=== PATIENT | female | born 2000 | race African-American/Black ===

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

== ENCOUNTER 2018-05-12 16:07 | Emergency (ER) | payer OTHER ==
[2018-05-12 16:18] VITALS: BP 118/41; PULSE 67; TEMP 98.2; BMI 29.0
[2018-05-12] MEDS ORDERED: ACETAMINOPHEN 500 MG TABLET (FP) PO ONE (17:18)
--- NOTE | 2018-05-12 17:37 | PDOC ---
*Physical Exam - Vital Signs Last Vital Signs Temp Pulse Resp BP Pulse Ox 98.2 F 67 17 118/41 L 97 05/12/18 16:16 05/12/18 16:16 05/12/18 16:16 05/12/18 16:16 05/12/18 16:16 ED Treatment Course - LABORATORY CBC & Chemistry Diagram: 05/12/18 17:30 05/12/18 17:30 - ADDITIONAL ORDERS Additional order review: Laboratory Results 05/12/18 17:05 Urine HCG, Qual Positive - RADIOLOGY Radiology Studies Ordered: Category Date Time Status <14WKS US [US] Stat Ultrasound 05/12/18 17:18 Ordered Medical Decision Making - Medical Decision Making 05/12/18 17:35 Pt received in sign out from scott Haynes. Pt w/ initial complaint of menstrual cramps and left suprapubic pain. UA + for . Pt will have labs, u cx, t & s, along w/ u/s to r/o ectopic . 05/12/18 18:43 Selected Entries 05/12/18 16:16 Temperature 98.2 F Pulse Rate 67 Blood Pressure 118/41 L Laboratory Tests 05/12/18 05/12/18 05/12/18 17:05 17:30 17:30 WBC 6.2 Hgb 12.5 Hct 37.7 Absolute Neuts (auto) 3.9 Sodium 138 Potassium 4.2 Chloride 106 Carbon Dioxide 27 Anion Gap 5 L Creat Clearance w eGFR 106.68 Random Glucose 91 Calcium 9.4 AST 10 L ALT 19 Alkaline Phosphatase 63 Total Protein 7.8 Albumin 4.4 Beta HCG, Quant < 1.0 Urine HCG, Qual Positive U/s shows no IUP. Ovaries unremarkable. Pt states mod relief w/ Tylenol. Explained to mother the discrepancy with the urine and how the serum beta is highly accurate. I recommended the mother to return in 48 hrs for repeat beta hcg 05/12/18 18:44 *DC/Admit/Observation/Transfer Diagnosis at time of Disposition: Abdominal pain - Discharge Dispostion Disposition: HOME Condition at time of disposition: Improved - Referrals - Patient Instructions Printed Discharge Instructions: DI for Abdominal Pain-Adult Additional Instructions: Please return in 48 hrs for repeat BETA. Take tylenol or motrin for pain - Post Discharge Activity
[2018-05-12] MEDS ORDERED: ACETAMINOPHEN 325 MG TABLET (FP) ONE (17:41)
--- NOTE | 2018-05-12 17:44 | PDOC ---
History of Present Illness - General Chief Complaint: Pain Stated Complaint: MENTSRUAL CRAMPS Time Seen by Provider: 05/12/18 16:30 History Source: Patient Exam Limitations: No Limitations Past History - Past Medical History Allergies/Adverse Reactions: Allergies Allergy/AdvReac Type Severity Reaction Status Date / Time No Known Allergies Allergy Verified 05/12/18 16:28 Home Medications: Ambulatory Orders NK [No Known Home Medication] 05/12/18 Asthma: Yes COPD: No Thyroid Disease: No - Immunization History Immunization Up to Date: Yes - Suicide/Smoking/Psychosocial Hx Smoking Status: No Smoking History: Never smoked Have you smoked in the past 12 months: No Number of Cigarettes Smoked Daily: 0 Information on smoking cessation initiated: No Hx Alcohol Use: No Drug/Substance Use Hx: Yes Substance Use Type: None *Physical Exam - Vital Signs Last Vital Signs Temp Pulse Resp BP Pulse Ox 98.2 F 67 17 118/41 L 97 05/12/18 16:16 05/12/18 16:16 05/12/18 16:16 05/12/18 16:16 05/12/18 16:16 - Physical Exam General Appearance: No: Apparent Distress Respiratory/Chest: positive: Lungs Clear, Normal Breath Sounds. negative: Respiratory Distress Cardiovascular: positive: Regular Rhythm, Regular Rate, S1, S2. negative: Murmur Gastrointestinal/Abdominal: positive: Tender (mild TTP along lower abdomen (L>R) ), Soft. negative: Distended, Guarding, Rebound, Mass Musculoskeletal: negative: CVA Tenderness Integumentary: positive: Normal Color Neurologic: positive: Alert, Normal Mood/Affect ED Treatment Course - ADDITIONAL ORDERS Additional order review: Laboratory Results 05/12/18 17:05 Urine HCG, Qual Positive Medical Decision Making - Medical Decision Making 18 y/o F with hx of asthma presents with menstrual cramps, worse than usual. States her menstrual cycle started today, but it has never been this painful. Took 2 Advils this morning but they did not seem to help much. States her LNMP was sometime in March but unsure of exact date; has regular periods. Also mentions having 4 episodes of NBNB emesis this AM, but that has since resolved. Had ate something prior to coming and did not throw it up. Denies fever, sob, cp , urinary complaints UCG done and patient found to be Patient upgraded to main ED, under care of [facility] Audra Cheney, to r/o ectopic 05/12/18 17:40 *DC/Admit/Observation/Transfer Diagnosis at time of Disposition: Incidental - Referrals - Patient Instructions - Post Discharge Activity
[2018-05-12 17:46] LABS: BASO % 0.3 % (0-2.0); HEMATOCRIT 37.7 % (32.4-45.2); HEMOGLOBIN 12.5 GM/dL (10.7-15.3); LYMPH % 30.1 % (8-40); MCH 29.3 pg (25.7-33.7); MCHC 33.1 g/dl (32.0-36.0); MEAN CELL VOLUME 88.6 fl (80-96); NEUT % 62.6 % (42.8-82.8); PLATELET COUNT 254 K/MM3 (134-434); RBC 4.25 M/mm3 (3.60-5.2); RDW 13.6 % (11.6-15.6); WHITE BLOOD COUNT 6.2 K/mm3 (4.0-10.0)
[2018-05-12 18:15] LABS: ALBUMIN 4.4 g/dl (3.4-5.0); ALK PHOS 63 U/L (45-117); ANION GAP 5 MMOL/L (8-16); BILIRUBIN,TOTAL 0.6 mg/dL (0.2-1); BLOOD UREA NITROGEN 9 mg/dL (7-18); CALCIUM 9.4 mg/dL (8.5-10.1); CHLORIDE 106 mmol/L (98-107); CO2 27 mmol/L (21-32); CREATININE 0.7 mg/dL (0.55-1.3); GLUCOSE,RANDOM 91 mg/dL (74-106); POTASSIUM 4.2 mmol/L (3.5-5.1); SGOT/AST 10 U/L (15-37); SGPT/ALT 19 U/L (13-61); SODIUM 138 mmol/L (136-145); TOT PROT 7.8 g/dl (6.4-8.2)
== END 2018-05-12 19:52 | disposition home or self-care (01) ==
LOC: JERFT 16:07 → JER 16:07
DX: R10.30 Lower abdominal pain, unspecified (principal)
CPT/HCPCS: 36415; 76817-TC; 80053; 84702; 84703; 85025; 86850; 86900; 86901; 99282-25

== ENCOUNTER 2019-02-17 20:20 | Emergency (ER) | payer SELFPAY ==
[2019-02-17 20:55] VITALS: BMI 25.4
--- NOTE | 2019-02-17 22:47 | PDOC ---
History of Present Illness - General History Source: Patient Exam Limitations: No Limitations - History of Present Illness Initial Comments: 02/17/19 22:35 Patient is a 18-year-old female with history of possible gastritis, kidney infection complaining of lower abdominal pain x2 days associated with nausea and vomiting. She described the pain as a burning, pulling pain in the suprapubic area which is now 10/10. She has had some diarrhea episodes today. She has no associated dysuria. States she has been very fatigued and sleeping much today. Has eaten bread and audrey aaron today but vomited. Noted to have a fever at triage of 101.2. States she has been having a headache and a sore throat for the past 2 days as well. Headache is constant, throbbing, 9/10. States she went to [facility] yesterday for the same symptoms. States her throat was swabbed and she was sent home with no intervention. PMD: [facility] PMHX: As above PSOCHX: Occasional marijuana, neg etoh, neg cig ALL: NKDA GENERAL/CONSTITUTIONAL: [No fever or chills. No weakness. No weight change.] HEAD, EYES, EARS, NOSE AND THROAT: [No change in vision. No ear pain or discharge. No sore throat.] CARDIOVASCULAR: [No chest pain or shortness of breath.] RESPIRATORY: [No cough, wheezing, or hemoptysis.] GASTROINTESTINAL: [(+) nausea, vomiting, diarrhea (-) constipation. No rectal bleeding.] GENITOURINARY: [No dysuria, frequency, or change in urination.] MUSCULOSKELETAL: [No joint or muscle swelling or pain. No neck or back pain.] SKIN AND BREASTS: [No rash or easy bruising.] NEUROLOGIC: [(+) headache, (-) vertigo, loss of consciousness, or loss of sensation.] PSYCHIATRIC: [No depression or anxiety.] ENDOCRINE: [No increased thirst. No abnormal weight change.] HEMATOLOGIC/LYMPHATIC: [No anemia, easy bleeding, or history of blood clots.] ALLERGIC/IMMUNOLOGIC: [No hives or skin allergy. No latex allergy.] GENERAL: [The patient is awake, alert, and fully oriented, in mild acute distress.] HEAD: [Normal with no signs of trauma.] EYES: [Pupils equal, round and reactive to light, extraocular movements intact, sclera anicteric, conjunctiva clear.] ENT: [Ears normal, nares patent, oropharynx clear without exudates. Moist mucous membranes.] NECK: [Normal range of motion, supple without lymphadenopathy, JVD, or masses.] LUNGS: [Breath sounds equal, clear to auscultation bilaterally. No wheezes, and no crackles.] HEART: [Regular rate and rhythm, normal S1 and S2 without murmur, rub.] ABDOMEN: [Soft, (+) tenderness in the lower abd most on the RLQ, normoactive bowel sounds. No guarding, no rebound. No masses.] PELVIC: Normal external genitalia, normal physiological discharge in vault, bilateral adnexal tenderness, no CMT EXTREMITIES: [Normal range of motion, no edema. No clubbing or cyanosis. No cords, erythema, or tenderness.] NEUROLOGICAL: [Cranial nerves II through XII grossly intact. Normal speech, normal gait.] PSYCH: [Normal mood, normal affect.] SKIN: [Warm, Dry, normal turgor, no rashes or lesions noted.] <Shandra Broussard - Last Filed: 02/18/19 02:38> <Castro Overton - Last Filed: 02/18/19 22:08> - General Chief Complaint: Pain Stated Complaint: STOMACH PAIN Past History - Past Medical History Asthma: Yes COPD: No Thyroid Disease: No - Immunization History Immunization Up to Date: Yes - Psycho Social/Smoking Cessation Hx Smoking Status: No Smoking History: Never smoked Have you smoked in the past 12 months: No Number of Cigarettes Smoked Daily: 0 Information on smoking cessation initiated: No Hx Alcohol Use: No Drug/Substance Use Hx: No Substance Use Type: None <Shandra Broussard - Last Filed: 02/18/19 02:38> <Castro Overton - Last Filed: 02/18/19 22:08> - Past Medical History Allergies/Adverse Reactions: Allergies Allergy/AdvReac Type Severity Reaction Status Date / Time No Known Allergies Allergy Verified 02/17/19 20:51 Home Medications: Ambulatory Orders NK [No Known Home Medication] 05/12/18 *Physical Exam - Vital Signs Last Vital Signs Temp Pulse Resp BP Pulse Ox 101.5 F H 84 20 112/73 99 02/17/19 20:52 02/17/19 20:52 02/17/19 20:52 02/17/19 20:52 02/17/19 20:52 <Shandra Broussard - Last Filed: 02/18/19 02:38> - Vital Signs Last Vital Signs Temp Pulse Resp BP Pulse Ox 98.2 F 62 18 105/62 99 02/18/19 02:56 02/18/19 02:56 02/18/19 02:56 02/18/19 02:56 02/18/19 02:56 <Castro Overton - Last Filed: 02/18/19 22:08> ED Treatment Course - LABORATORY CBC & Chemistry Diagram: 02/17/19 23:10 02/17/19 23:10 <Shandra Broussard - Last Filed: 02/18/19 02:38> - LABORATORY CBC & Chemistry Diagram: 02/17/19 23:10 02/17/19 23:10 - ADDITIONAL ORDERS Additional order review: 02/17/19 23:10 RBC 4.01 MCV 88.4 MCHC 32.3 RDW 13.1 MPV 8.8 Neutrophils % 66.6 Lymphocytes % 23.9 D Monocytes % 8.7 Eosinophils % 0.4 Basophils % 0.4 - Medications Given in the ED: ED Medications Discontinued Medications Generic Name Dose Route Start Last Admin Trade Name Lamineq PRN Reason Stop Dose Admin Ketorolac Tromethamine 30 mg 02/17/19 22:56 02/17/19 23:20 Toradol Injection - IVPUSH 02/17/19 22:57 30 mg ONCE ONE Administration Ondansetron HCl 4 mg 02/17/19 22:57 02/17/19 23:21 Zofran Injection IVPUSH 02/17/19 22:58 4 mg ONCE ONE Administration Oxycodone/Acetaminophen 1 combo 02/18/19 02:02 02/18/19 02:24 Percocet 5/325 - PO 02/18/19 02:03 1 combo ONCE ONE Administration Sodium Chloride 1,000 ml 02/17/19 22:56 02/17/19 23:20 Normal Saline - IV 02/17/19 22:57 1,000 ml ONCE ONE Administration <Castro Overton - Last Filed: 02/18/19 22:08> Medical Decision Making - Medical Decision Making 02/17/19 22:35 Patient is a 18-year-old female with history of possible gastritis, kidney infection complaining of lower abdominal pain x2 days associated with nausea and vomiting. She described the pain as a burning, pulling pain in the suprapubic area which is now 10/10. She has had some diarrhea episodes today. She has no associated dysuria. States she has been very fatigued and sleeping much today. Has eaten bread and audrey aaron today but vomited. Noted to have a fever at triage of 101.2. States she has been having a headache and a sore throat for the past 2 days as well. Headache is constant, throbbing, 9/10. States she went to [facility] yesterday for the same symptoms. States her throat was swabbed and she was sent home with no intervention. DDx: Viral illness, appendicitis labs influenza swab, rapid strep consider CT scan Labs reviewed not acute findings except wbc of 2.7 patient distiller in the RLQ will ctap 02/18/19 02:29 Patient Full Name: PEDRO TAM Patient Accession No: [id number] Patient : 2000 Reason for Exam: rlq abd pain fever Referring Physician: Patient Name: YONATAN VASQUEZ THIS IS A PRELIMINARY REPORT FROM [facility] DATE OF SERVICE: 2019-02-18 00:52:30 IMAGES: [id number] EXAM: ABDOMEN \T\ PELVIS CT WITH CONTR HISTORY: Right lower quadrant pain and fever COMPARISON: None. FINDINGS: Lung bases are clear. The visualized cardiac chambers are normal size and configuration. Normal liver, gallbladder, pancreas, spleen, adrenal glands and kidneys. The stomach and abdominal small and large bowel are normal. There is no aortic aneurysm. There is no significant retroperitoneal lymphadenopathy. The pelvic small and large bowel are normal. There is no evidence of appendicitis, although the appendix is only questionably visualized. The uterus and adnexal structures are normal. Urinary bladder is unremarkable. There is a small amount of pelvic free fluid. No discrete pelvic lymphadenopathy is identified. IMPRESSION: Small amount of pelvic free fluid is questionably physiologic. A collapsed ovarian cyst is also considered although there are no adnexal masses. No other localizing findings for acute pathology. Only questionable visualization of the appendix without definite findings for appendicitis. One or more of the following dose reduction techniques were used: automated exposure control, adjustment of the mA and/or kV according to patient size, use of iterative reconstructive technique. THIS DOCUMENT HAS BEEN ELECTRONICALLY SIGNED Rad Cassidy MD 02/18/2019 02:00 PATRIZIA Boyer Please call Imaging Claims Correspondence Clerk [phone] ([phone]) with questions. INTERPRETING RADIOLOGIST: Ant Cassidy MD Electronically Signed: Feb 18, 2019 02:02AM EST Patient complains of pain after pelvic exam again given the Percocet. The report of the CAT scan was reviewed and is questionable visualization of the appendix without definite findings of acute appendicitis. This was discussed with the patient and her mother that if symptoms persist then it could still be appendicitis that is not captured by the CAT scan at this time because it may be too early. Mother and patient understands that if the pain persist in the right lower quadrant and is associated with fever nausea and vomiting they need to return to the emergency room immediately. I discussed the physical exam findings, ancillary test results and final diagnoses with the patient. I answered all of the patient's questions. The patient was satisfied with the care received and felt comfortable with the discharge plan and treatment plan. The Patient agrees to follow up with the primary care physician within 24-72 hours. <Shandra Broussard - Last Filed: 02/18/19 02:38> - Medical Decision Making 02/18/19 22:08 I reviewed the case of the mid-level practitioner and was available for consultation while in the emergency department <Castro Overton - Last Filed: 02/18/19 22:08> Discharge - Discharge Information Problems reviewed: Yes <Shandra Broussard - Last Filed: 02/18/19 02:38> <Castro Overton - Last Filed: 02/18/19 22:08> - Discharge Information Clinical Impression/Diagnosis: Abdominal pain Qualifiers: Abdominal location: unspecified location Qualified Code(s): R10.9 - Unspecified abdominal pain Condition: Stable Disposition: HOME - Patient Discharge Instructions Patient Printed Discharge Instructions: DI for Abdominal Pain-Adult Additional Instructions: Your Discharge Instructions: You must call primary care physician within 24 hours to arrange follow-up. Return to the Emergency Department with any new, persistent or worsening symptoms, for fever, chills, SOB, dizziness or any other concerning changes that may occur. The report of the CAT scan was is questionable visualization of the appendix without definite findings of acute appendicitis. YOU MUST RETURN IMMEDIATELY TO THE ED IF THE PAIN PERSIST IN THE RIGHT LOWER SIDE OF THE ABDODMEN and is associated with fever nausea and vomiting. Your flu test is also pending call tomorrow for report on your flu test.
[2019-02-17] MEDS ORDERED: SODIUM CHLORIDE 0.9% 500 ML INFUS.BAG IV ONE (22:56)
[2019-02-17] MEDS ORDERED: KETOROLAC TROMETHAMINE 30 MG/1 ML VIAL IVPUSH ONE (22:56)
[2019-02-17] MEDS ORDERED: ONDANSETRON 4 MG/2 ML VIAL IVPUSH ONE (22:57)
[2019-02-17] MEDS ORDERED: ONDANSETRON 4 MG/2 ML VIAL ONE (23:10)
[2019-02-17] MEDS ORDERED: KETOROLAC TROMETHAMINE 30 MG/1 ML VIAL ONE (23:10)
[2019-02-17 23:38] LABS: BASO % 0.4 % (0-2.0); EOS % 0.4 % (0-4.5); HEMATOCRIT 35.4 % (32.4-45.2); HEMOGLOBIN 11.5 GM/dL (10.7-15.3); LYMPH % 23.9 % (8-40); MCH 28.6 pg (25.7-33.7); MCHC 32.3 g/dl (32.0-36.0); MEAN CELL VOLUME 88.4 fl (80-96); MEAN PLT VOLUME 8.8 fl (7.5-11.1); MONO % 8.7 % (3.8-10.2); NEUT % 66.6 % (42.8-82.8); PLATELET COUNT 197 K/MM3 (134-434); RBC 4.01 M/mm3 (3.60-5.2); RDW 13.1 % (11.6-15.6); WHITE BLOOD COUNT 2.7 K/mm3 (4.0-10.0)
[2019-02-17 23:39] LABS: URINE APPEARANCE CLEAR; URINE BILIRUBIN NEGATIVE (NEGATIVE); URINE COLOR YELLOW; URINE GLUCOSE (UA) NEGATIVE (NEGATIVE); URINE KETONE 2+ (NEGATIVE); URINE LEUK ESTERASE NEGATIVE (NEGATIVE); URINE NITRITE NEGATIVE (NEGATIVE); URINE PROTEIN NEGATIVE (NEGATIVE)
[2019-02-18 00:04] LABS: ALBUMIN 3.9 g/dl (3.4-5.0); BILIRUBIN,TOTAL 0.7 mg/dL (0.2-1); BLOOD UREA NITROGEN 6.5 mg/dL (7-18); CALCIUM 8.8 mg/dL (8.5-10.1); CREATININE 0.8 mg/dL (0.55-1.3); TOT PROT 6.9 g/dl (6.4-8.2)
[2019-02-18 02:59] VITALS: BP 105/62; PULSE 62; TEMP 98.2
== END 2019-02-18 03:00 | disposition home or self-care (01) ==
LOC: JER 20:20
PROC: 3E033GC Introduction of Other Therapeutic Substance into Peripheral Vein, Percutaneous Approach (ICD-10-PCS; principal; 2019-02-17)
PROC: 3E0333Z Introduction of Anti-inflammatory into Peripheral Vein, Percutaneous Approach (ICD-10-PCS; 2019-02-17)
DX: R10.9 Unspecified abdominal pain (principal)
CPT/HCPCS: 36415; 74177-TC; 80053; 81003; 83690; 84703; 85025; 87070; 87491; 87591; 87804; 87880; 99284-25; Q9967

== ENCOUNTER 2019-02-18 22:50 | Emergency (ER) | payer SELFPAY ==
[2019-02-18 23:01] VITALS: BP 119/70; PULSE 61; TEMP 98.6; BMI 25.2
[2019-02-19] MEDS ORDERED: ONDANSETRON 4 MG TABLET PO ONE (01:12)
--- NOTE | 2019-02-19 01:14 | PDOC ---
History of Present Illness - General Chief Complaint: Pain Stated Complaint: SENT BY DOC Time Seen by Provider: 02/18/19 23:13 History Source: Patient Exam Limitations: No Limitations - History of Present Illness Initial Comments: 02/19/19 01:05 Patient is a 18-year-old female with no past medical history here with complaints of continued abdominal pain patient now points to the suprapubic area. Patient called this evening to report that she was still vomiting and still had abdominal pain 09/23. States she ate this morning and vomited, since then has not been able to eat anything the rest of the day. CT scan reviewed from yesterday official read by radiologist showed no appendicitis. However, had tenderness on her vaginal exam yesterday. PMD: [facility] PMHX: As above PSOCHX: ALL: NKDA Review of Systems: GENERAL/CONSTITUTIONAL: No fever or chills. No weakness. No weight change. HEAD, EYES, EARS, NOSE AND THROAT: No change in vision. No ear pain or discharge. No sore throat. CARDIOVASCULAR: No chest pain or shortness of breath. RESPIRATORY: No cough, wheezing, or hemoptysis. GASTROINTESTINAL: (+) nausea, vomiting, (-) diarrhea or constipation. No rectal bleeding. GENITOURINARY: No dysuria, frequency, or change in urination. MUSCULOSKELETAL: No joint or muscle swelling or pain. No neck or back pain. SKIN AND BREASTS: No rash or easy bruising. NEUROLOGIC: No headache, vertigo, loss of consciousness, or loss of sensation. PSYCHIATRIC: No depression or anxiety. ENDOCRINE: No increased thirst. No abnormal weight change. HEMATOLOGIC/LYMPHATIC: No anemia, easy bleeding, or history of blood clots. ALLERGIC/IMMUNOLOGIC: No hives or skin allergy. No latex allergy. GENERAL: [The patient is awake, alert, and fully oriented, in no acute distress. ] HEAD: [Normal with no signs of trauma.] EYES: [Pupils equal, round and reactive to light, extraocular movements intact, sclera anicteric, conjunctiva clear.] ENT: [Ears normal, nares patent, oropharynx clear without exudates. Moist mucous membranes.] NECK: [Normal range of motion, supple without lymphadenopathy, JVD, or masses.] LUNGS: [Breath sounds equal, clear to auscultation bilaterally. No wheezes, and no crackles.] HEART: [Regular rate and rhythm, normal S1 and S2 without murmur, rub.] ABDOMEN: [Soft, (+) tenderness suprapubic, nontender at McBurney's point, normoactive bowel sounds. No guarding, no rebound. No masses.] EXTREMITIES: [Normal range of motion, no edema. No clubbing or cyanosis. No cords, erythema, or tenderness.] NEUROLOGICAL: [Cranial nerves II through XII grossly intact. Normal speech, normal gait.] PSYCH: [Normal mood, normal affect.] SKIN: [Warm, Dry, normal turgor, no rashes or lesions noted.] 02/19/19 01:48 Past History - Past Medical History Allergies/Adverse Reactions: Allergies Allergy/AdvReac Type Severity Reaction Status Date / Time No Known Allergies Allergy Verified 02/17/19 20:51 Home Medications: Ambulatory Orders Ondansetron HCl [Zofran] 4 mg PO QID #14 tablet 02/19/19 Oxycodone HCl/Acetaminophen [Percocet 5/325 -] 1 tab PO Q4H #8 tablet MDD 6 08/03 Asthma: Yes COPD: No Thyroid Disease: No - Immunization History Immunization Up to Date: Yes - Psycho Social/Smoking Cessation Hx Smoking Status: No Smoking History: Never smoked Have you smoked in the past 12 months: No Number of Cigarettes Smoked Daily: 0 Hx Alcohol Use: No Drug/Substance Use Hx: No Substance Use Type: None *Physical Exam - Vital Signs Last Vital Signs Temp Pulse Resp BP Pulse Ox 98.6 F 61 20 119/70 100 02/18/19 22:58 02/18/19 22:58 02/18/19 22:58 02/18/19 22:58 02/18/19 22:58 ED Treatment Course - RADIOLOGY Radiology Studies Ordered: Category Date Time Status TRANSVAGINAL ULTRASOUND US [US] Stat Ultrasound 02/18/19 23:10 Taken Medical Decision Making - Medical Decision Making 02/19/19 01:05 Patient is a 18-year-old female with no past medical history here with complaints of continued abdominal pain patient now points to the suprapubic area. Patient called this evening to report that she was still vomiting and still had abdominal pain 810. States she ate this morning and vomited, since then has not been able to eat anything the rest of the day. CT scan reviewed from yesterday official read by radiologist showed no appendicitis. However, had tenderness on her vaginal exam yesterday. We will send patient for ultrasound rule out torsion Patient Full Name: PEDRO TAM Patient Accession No: [id number] Patient : 2000 Reason for Exam: pelvis pain and fever Referring Physician: Patient Name: YONATAN VASQUEZ THIS IS A PRELIMINARY REPORT FROM [facility] DATE OF SERVICE: 2019-02-18 23:12:58 IMAGES: [id number] EXAM: TRANSVAGINAL ULTRASOUND US HISTORY: Pelvic pain and fever COMPARISON: Abdomen and pelvis CT from earlier on the same date FINDINGS: The uterus is normal in size and echogenicity The endometrium is normal in thickness measuring 7.8 mm Incidental nabothian cysts The right ovary is normal in size and contains multiple small follicles There is a cyst in the left ovary measuring 1.8 x 1.5 x 1.9 cm containing low level internal echoes, possibly hemorrhagic. There are a few small follicles as well Arterial flow is demonstrated to both ovaries on Doppler evaluation No adnexal masses visualized Small amount of free fluid in the posterior cul-de-sac may be incidental physiologic fluid THIS DOCUMENT HAS BEEN ELECTRONICALLY SIGNED Jarek Castillo MD 02/19/2019 00:26 EST M.D. Please call Imaging Doctor Podiatric Medicine [phone] ([phone]) with questions. I discussed the physical exam findings, ancillary test results and final diagnoses with the patient. I answered all of the patient's questions. The patient was satisfied with the care received and felt comfortable with the discharge plan and treatment plan. The Patient agrees to follow up with the primary care physician within 24-72 hours. Discharge - Discharge Information Problems reviewed: Yes Clinical Impression/Diagnosis: Ruptured ovarian cyst Abdominal pain Qualifiers: Abdominal location: unspecified location Qualified Code(s): R10.9 - Unspecified abdominal pain Condition: Stable Disposition: HOME - Additional Discharge Information Prescriptions: Ondansetron HCl [Zofran] 4 mg PO QID #14 tablet Oxycodone HCl/Acetaminophen [Percocet 5/325 -] 1 tab PO Q4H #8 tablet MDD 6 - Follow up/Referral - Patient Discharge Instructions Patient Printed Discharge Instructions: DI for Ovarian Cyst, DI for Abdominal Pain-Adult Additional Instructions: Your Discharge Instructions: You must call primary care physician within 24 hours to arrange follow-up. Return to the Emergency Department with any new, persistent or worsening symptoms, for fever, chills, SOB, dizziness or any other concerning changes that may occur. Follow-up with your FORMS EXAMINER - Post Discharge Activity
[2019-02-19] MEDS ORDERED: ONDANSETRON *ODT* 4 MG TABLET ONE (01:17)
== END 2019-02-19 01:50 | disposition home or self-care (01) ==
LOC: JER 22:50
DX: N83.202 Unspecified ovarian cyst, left side (principal); N83.201 Unspecified ovarian cyst, right side
CPT/HCPCS: 76830-TC; 99281-25

== ENCOUNTER 2019-11-22 16:33 | Emergency (ER) | payer OTHER ==
[2019-11-22 16:45] VITALS: BP 108/58; PULSE 79; TEMP 98.3; BMI 26.1
--- OUTSIDE RECORDS SUMMARY | 2019-11-22 16:59 | XMS ---
:2000 Author Organization [facility] Care Team Providers Name Role Phone Ringstad, Sakshi Unavailable Unavailable Ringstad, Sakshi Unavailable Unavailable Ringstad, Sakshi Unavailable Unavailable Ringstad, Sakshi Unavailable Unavailable Ringstad, Sakshi Unavailable Unavailable Ringstad, Sakshi Unavailable Unavailable Ringstad, Sakshi Unavailable Unavailable Ringstad, Sakshi Unavailable Unavailable Ringstad, Sakshi Unavailable Unavailable Ringstad, Sakshi Unavailable Unavailable Ringstad, Sakshi Unavailable Unavailable Ekechukwu, Eberechi Unavailable [phone] Ekechukwu, Eberechi Unavailable [phone] ED STAFF PHYSICIAN, STAFF Unavailable Unavailable Routen, Misha Unavailable Unavailable Routen, Misha Unavailable Unavailable Aszalos, Zina Ludy Unavailable Unavailable Aszalos, Ludy Unavailable Unavailable Aszalos, Ludy Unavailable Unavailable Aszalos, Ludy Unavailable Unavailable Aszalos, Ludy Unavailable Unavailable Aszalos, Ludy Unavailable Unavailable Aszalos, Ludy Unavailable Unavailable Aszalos, Ludy Unavailable Unavailable Aszalos, Ludy Unavailable Unavailable Nakia Funes MD Unavailable Unavailable Nakia Funes MD Unavailable Unavailable Nakia Funes MD Unavailable Unavailable Nakia Funes MD Unavailable Unavailable Nakia Funes MD Unavailable Unavailable Nakia Funes MD Unavailable Unavailable Nakia Funes MD Unavailable Unavailable Nakia Funes MD Unavailable Unavailable Nakia Funes MD Unavailable Unavailable Nakia Funes MD Unavailable Unavailable Nakia Funes MD Unavailable Unavailable Nakia Funes MD Unavailable Unavailable Nakia Funes MD Unavailable Unavailable Nakia Funes MD Unavailable Unavailable Nakia Funes MD Unavailable Unavailable Adair Unavailable Unavailable Adair Unavailable Unavailable Adair Unavailable Unavailable Adair Unavailable Unavailable Adair Unavailable Unavailable Adair Unavailable Unavailable Adair Unavailable Unavailable Adair Unavailable Unavailable Adair Unavailable Unavailable Adair Unavailable Unavailable Yessenia FELIPE MD Unavailable [phone] Yessenia FELIPE MD Unavailable [phone] ED STAFF PHYSICIAN Unavailable Unavailable ED STAFF PHYSICIAN Unavailable Unavailable Re-disclosure Warning The records that you are about to access may contain information from federally- assisted alcohol or drug abuse programs. If such information is present, then the following federally mandated warning applies: This information has been disclosed to you from records protected by federal confidentiality rules (42 CFR part 2). The federal rules prohibit you from making any further disclosure of this information unless further disclosure is expressly permitted by the written consent of the person to whom it pertains or as otherwise permitted by 42 CFR part 2. A general authorization for the release of medical or other information is NOT sufficient for this purpose. The Federal rules restrict any use of the information to criminally investigate or prosecute any alcohol or drug abuse patient.The records that you are about to access may contain highly sensitive health information, the redisclosure of which is protected by Article 27-F of the [facility] Public Health law. If you continue you may haveaccess to information: Regarding HIV / AIDS; Provided by facilities licensed or operated by the [facility] Office of Mental Health; or Provided by the [facility] Office for People With Developmental Disabilities. If such information is present, then the following [facility] mandated warning applies: This information has been disclosed to you from confidential records which are protected by state law. State law prohibits you from making any further disclosure of this information without the specific written consent of the person to whom it pertains, or as otherwise permitted by law. Any unauthorized further disclosure in violation of state law may result in a fine or detention sentence or both. A general authorization for the release of medical or other information is NOT sufficient authorization for further disclosure. Family History Family Member Family Member Family Member Date of Description Data Source(s) Name Gender Status Status Unknown Female Diagnosis 03/19/2018 NEXTGEN ([facility] 12:00:00 [facility]) Unknown Female Diagnosis 03/19/2018 NEXTGEN ([facility] 12:[facility]:00 AM [facility]) Unknown Female Diagnosis 03/19/2018 NEXTGEN ([facility] 12:00:00 AM [facility]) Unknown Female Diagnosis 03/19/2018 NEXTGEN ([facility] 12:00:00 AM [facility]) Unknown Female Diagnosis 03/19/2018 NEXTGEN ([facility] 12:00:00 AM [facility]) Encounters Encounter Providers Location Date Indications Data Source(s ) Outpatient Attender: H 09/04/2019 [facility] Sakshi 03:44:00 Medical [place] Dodie PM EDT : Sakshi Woodarder : Sakshi Alexander OutpatientOFFICE/ Attender: [facility] 09/04/2019 NE XTGEN ([facility] OUTPATIENT VISIT, Faizan Casas MD [place] 03:44:00 [facility] [place] PM EDT - Center) 09/04/2019 03:44:00 PM EDT Outpatient 09/04/2019 [facility] 02:30:00 Medical [place] PM EDT Outpatient 09/04/2019 [facility] 12:00:00 Medical [place] AM EDT Attender: Layla [facility] 08/23/2019 NEXTGE N ([facility] 04:14:00 [facility] - Center) 08/23/2019 04:14:00 PM EDT Outpatient 08/22/2019 [facility] 10:47:00 Medical [place] AM EDT Outpatient 08/22/2019 [facility] 12:00:00 Medical [place] AM EDT Attender: Misha [facility] 08/21/2019 NEXTGEN ([facility] 11:28:00 [facility] AM [facility]T - Center) 08/21/2019 11:28:00 AM EDT Attender: Susan [facility] 05/08/2019 NEXTGE N ([facility] 11:50:00 [facility] AM EDT - Center) 05/08/2019 11:50:00 AM EDT Outpatient 05/07/2019 [facility] 11:21:00 Medical [place] AM EDT Outpatient 05/07/2019 [facility] 12:00:00 Medical [place] AM EDT Attender: [facility] 04/11/2019 NEXTGEN ([facility] 10:17:00 [facility] Eke[place]uk[place] AM EST - Center) 04/11/2019 10:17:00 AM EST Outpatient 04/10/2019 [facility] 02:57:00 Medical Center PM EST Outpatient 04/10/2019 [facility] 12:00:00 Medical Center AM EST Attender: [facility] 03/17/2019 NEXTGE N ([facility] 09:23:00 [facility] Medic l EST - Center) 03/17/2019 09:23:00 AM EST Outpatient 03/16/2019 [facility] 03:15:00 Medical Center PM EST Outpatient 03/16/2019 [facility] 12:00:00 Medical Center AM EST Emergency Attender: ED H 02/16/2019 [facility] STAFF 10:26:00 Medical Center PHYSICIANAttende PM EST - r: STAFF ED 02/17/2019 STAFF 01:10:00 PHYSICIANAdmitte AM EST r: ED STAFF PHYSICIAN Patient discharged. 02/16/2019 12:00:00 [facility] EST - 11/07/2002 [facility] al Center 12:00:00 AM EDT Attender: [facility] 11/15/2018 02:44:00 NEXTGEN ([facility] PM EDT - 11/15/2018 [facility] 02:44:00 PM EDT Center) Outpatient 11/14/2018 10:50:00 [facility] Center Outpatient 11/14/2018 12:00:00 [facility] Center Emergency H 11/12/2018 11:23:00 [facility] EDT - 11/12/2018 [facility] Center 03:44:00 PM EDT Patient discharged. Emergency Attender: [facility] ED STAFF H 10/25/2018 07:26:00 PM [facility] PHYSICIANAdmitter: [facility] ED EDT - 10/25/2018 Medical Center STAFF PHYSICIAN 10:19:00 PM EDT Patient discharged. Medications Medication Brand Start Product Dose Route Administrative Pharmacy St at Indications Reaction Description Data Name Date Form Instructions Instructions Source(s) Sulfamethox Bactri 09/03/ active Sulfame thoxa NEXTGEN azole 800 m DS 2019 zole 800 MG (Sa int MG / 800 12:00: [facility] Trimethopri mg-160 00 AM Trimethopr im Medical m 160 MG mg EDT 160 MG Oral Cent er) Oral Tablet tablet Tablet [Bactrim] [Bactrim] Bactrim DS 800 mg-160 mg tablet Insurance Providers Payer name Policy type Policy ID Covered Covered libertarian's Policy P bronson / Coverage libertarian ID relationship to Cain Inf ormation type cian [employer] [id number] SP [id number] C HMO [place] O [id number] 01 [id number] [employer] SELF PAY SP INSURANCE MICHELLE [id number] SP [id number] EXCHANGE MICHELLE O [id number] ESSENTIALS-COM MERCIAL O Problems, Conditions, and Diagnoses Code Display Name Description Problem Type Effective Data Sour ce(s) Dates R10.2 Pelvic and PELVIC AND Diagnosis 09/04/2019 [facility] perineal pain PERINEAL PAIN 03:44:00 PM Medical Center EDT Z72.0 Tobacco use TOBACCO USE Diagnosis 02/16/2019 [facility] 10:26:00 PM Medical Cente r EST J45.909 Unspecified UNSPECIFIED Diagnosis 02/16/2019 [facility] asthma, ASTHMA, 10:26:00 PM Medical Cente r uncomplicated UNCOMPLICATED EST R10.9 Unspecified UNSPECIFIED Diagnosis 02/16/2019 [facility] abdominal pain ABDOMINAL PAIN 10:26:00 PM Medic al Center EST R11.0 Nausea NAUSEA Diagnosis 11/12/2018 [facility] 11:23:00 AM Medical [place] r EDT K08.109 Complete loss of COMPLETE LOSS OF Diagnosis 11/12/2018 [facility] teeth, unspecified TEETH, UNSPECIFIED 11:23:00 AM Medical Center cause, unspecified CAUSE, UNSPECIFIED EDT class CLASS K08.89 Other specified OTHER SPECIFIED Diagnosis 11/12/2018 [facility] disorders of teeth DISORDERS OF TEETH 11:23:00 AM Medical Center and supporting AND SUPPORTING EDT structures STRUCTURES Z32.02 Encounter for ENCOUNTER FOR Diagnosis 10/25/2018 [facility] test, TEST, 07:26:00 PM Med ical Center result negative RESULT NEGATIVE EDT Z32.00 Encounter for ENCOUNTER FOR Diagnosis 10/25/2018 [facility] juarez test, TEST, 07:26:00 PM Med ical Center result unknown RESULT UNKNOWN EDT Z00.00 Encounter for ENCNTR FOR GENERAL Diagnosis 10/25/2018 [facility] general adult ADULT MEDICAL EXAM 07:26:00 PM [facility] medical W/O ABNORMAL EDT examination FINDINGS without abnormal findings Surgeries/Procedures Procedure Description Date Indications Data Source(s) OFFICE/OUTPATIENT 09/04/2019 NEXTGEN ([facility] VISIT, EST 12:00:00 AM EDT - Medical Ce nter) 09/04/2019 12:00:00 AM EDT URINE TEST 09/04/2019 NEXTGEN ([facility] 12:00:00 AM EDT - Medical Ce nter) 09/04/2019 12:00:00 AM EDT Results ID Date Data Source [id number] 09/04/2019 04:39:00 PM EDT NEXTG EN ([facility] [id number] [place]) Name Value Range Interpretation Code Description Data Supporting Source(s) Document(s ) <=8 Susceptible. AMPICILLIN NEXTGEN Indicates for ([facility] susceptibilities Medical only. [place]) <=4/2 Susceptible. AMPICILLIN NEXTGEN Indicates for SULBACTAM ([facility] [place] Medical only. [place]) <=2 Susceptible. CEFAZOLIN NEXTGEN Indicates for ([facility] susceptibilities Medical only. [place]) <=4 Susceptible. AZTREONAM NEXTGEN Indicates for ([facility] susceptibilities Medical only. [place]) <=1 Susceptible. CEFTRIAXONE NEXTGEN Indicates for ([facility] [place] Medical only. [place]) <=1 Susceptible. CEFTAZIDIME NEXTGEN Indicates for ([facility] susceptibilities Medical only. [place]) <= 4 Susceptible. GENTAMICIN NEXTGEN Indicates for ([facility] [place] Medical only. [place]) <=4 Susceptible. CEFUROXIME NEXTGEN Indicates for ([facility] susceptibilities Medical only. [place]) <= 1 Susceptible. CIPROFLOXACIN NEXTGEN Indicates for ([facility] susceptibilities Medical only. [place]) <= 1 Susceptible. MEROPENEM NEXTGEN Indicates for ([facility] [place] Medical only. [place]) <= 2 Susceptible. LEVOFLOXACIN NEXTGEN Indicates for ([facility] Medical only. [place]) 64 Specimen in lab; NITROFURANTOIN NEXTGEN results pending ([facility]) <= 16 Susceptible. PIPERACILLIN/TAZOB NEXTGEN Indicates for ACTAM ([facility] susceptibilities Medical only. [place]) <=2/38 Susceptible. TRIMETHOPRIM/SULFA NEXTGEN Indicates for METHOXAZOLE ([facility] susceptibilities Medical only. [place]) > 8 Results entered -- TETRACYCLINE NEXTGEN not verified ([facility]) <=0.5 Susceptible. ERTAPENEM NEXTGEN Indicates for ([facility] Medical [facility]. [place]) <= 1 CEFOTAXIME-ESBL NEXTGEN ([facility]) <= 8 Susceptible. CEFOXITIN NEXTGEN Indicates for ([facility] [place] Medical only. [place]) ID Date Data Source [id number] 09/04/2019 04:39:00 PM EDT NEXTG EN ([facility] [id number] [place]) Name Value Range Interpretation Code Description Data Lenka rce(s) Supporting Document(s ) PROTEUS ORGANISM ID NEXTGEN ([facility]) ID Date Data Source [id number] 09/04/2019 04:39:00 PM EDT NEXTG EN ([facility] [id number] [place]) Name Value Range Interpretation Description Data Sup porting Code Source(s) Document(s ) [id number] SPECIMEN NO NEXTGEN ([facility]) URINE BLADDER [facility]) Final CULTURE STATUS NEXTGEN ([facility]) 09/04/2019 COLLECTION DT NEXTGEN 16:39 ([facility]) 09/04/2019 PLATE DT [facility] 17:48 ([facility]) >100,000 COLONY COUNT [facility] CFU/ML ([facility]) Culture in CULTURE REPORT CRITICAL ACCESS HOSPITALGEN progress ([facility]) LACTOSE PRELIMINARY 1 NEXTGEN NON-COTTON BALL MACHINE TENDER ([facility]) ID Date Data Source [id number] 09/04/2019 04:39:00 PM EDT NEXTG EN ([facility] [id number] [place]) Name Value Range Interpretation Description Data Sup porting Code Source(s) Document(s ) Not Detected Not N.GONORRHOEAE NEXTGEN Detected RNA, TMA ([facility]) This test was performed using the APTIMA COMBO2(R) Assay(GENCardpoolPROBE(R)).For additional information, please refer [email or web address]/[email or web address](This link is being provided for informational /educationalpurposes only)

ID Date Data Source [id number] 09/04/2019 04:39:00 PM EDT NEXTG EN ([facility] [id number] [place]) Name Value Range Interpretation Description Data Sup porting Code Source(s) Document(s ) Not Detected Not CHLAMYDIA NEXTGEN Detected URINE ([facility]) This test was performed using the APTIMA COMBO2(R) Assay(EverTrue(R)).For additional information, please refer [email or web address]/[email or web address](This link is being provided for informational /educationalpurposes only)

ID Date Data Source [id number] 09/04/2019 04:39:00 PM EDT NEXTG EN ([facility] [id number] [place]) Name Value Range Interpretation Description Data Sup porting Code Source(s) Document(s ) Preliminary CULTURE STATUS [facility] ([facility]) 204.07682 SPECIMEN NO [facility] ([facility]) 09/04/2019 COLLECTION DT NEXTGEN 16:39 ([facility]) URINE BLADDER CULTURE SOURCE [facility]) Culture in CULTURE REPORT NEXTGEN progress ([facility]) 09/04/2019 PLATE DT [facility] 17:48 ([facility]) LACTOSE PRELIMINARY 1 NEXTGEN NON-COTTON BALL MACHINE TENDER ([facility]) >100,000 CFU/ML COLONY COUNT [facility] ([facility]) ID Date Data Source [id number] 09/04/2019 04:39:00 PM EDT NEXTG EN ([facility] [id number] [place]) Name Value Range Interpretation Description Data Sup porting Code Source(s) Document(s ) Preliminary CULTURE STATUS [facility] ([facility]) 204.47933 SPECIMEN NO CRITICAL ACCESS HOSPITALGEN ([facility]) URINE BLADDER CULTURE SOURCE [facility] ([facility]) 09/04/2019 COLLECTION DT NEXTGEN 16:39 ([facility]) Culture in CULTURE REPORT NEXTGEN progress ([facility]) 09/04/2019 PLATE DT NEXTGEN 17:48 ([facility]) ID Date Data Source [id number] 09/04/2019 04:39:00 PM EDT NEXTG EN ([facility] [id number] Center) Name Value Range Interpretation Description Data Sup porting Code Source(s) Document(s ) YELLOW YELLOW U COLOR NEXTGEN ([facility]) CLOUDY CLEAR U CLARITY NEXTGEN ([facility]) NEGATIVE NEGATIVE U GLUCOSE NEXTGEN ([facility]) NEGATIVE NEGATIVE U BILIRUBIN NEXTGEN ([facility]) NEGATIVE NEGATIVE U KETONE CRITICAL ACCESS HOSPITALGEN ([facility]) 1.025 1.015-1.025 U SP.GRAVITY NEXTGEN ([facility]) LARGE NEGATIVE U BLOOD NEXTGEN ([facility]) 6.0 4.5-8.0 U PH NEXTGEN ([facility]) 100 MG/DL NEGATIVE U PROTEIN NEXTGEN ([facility]) 1.0 MG/DL 0.2-1.0 U UROBILINOGEN CRITICAL ACCESS HOSPITALGEN ([facility]) NEGATIVE NEGATIVE U NITRITE NEXTGEN ([facility]) LARGE NEGATIVE U. LEUKOCYTE [facility] ([facility]) 20 - 50 0-3 U RBC NEXTGEN ([facility]) >200 0-3 U WBC NEXTGEN ([facility]) MODERATE NEGATIVE U BACTERIA [facility] ([facility]) ID Date Data Source [id number] 09/04/2019 04:39:00 PM EDT [facility] 0 Name Value Range Interpretation Description Data Sup porting Code Source(s) Document(s ) Color of Urine YELLOW <content [facility] styleCode="[facility] d">Color, Medical Urine Center </content>YELL OW <content styleCode="Enedina lics"> (YELLOW )</content> Glucose NEGATIVE <content [facility] [Mass/volume] styleCode="[facility] in Urine by d">Urine Medical Test strip Glucose Center </content>NEGA TIVE MG/DL<content styleCode="Enedina lics"> (NEGATIVE MG/DL)</conten t> UNK CLEAR <content [facility] styleCode="[facility] d">Urine Medical Clarity Center </content>CLOU DY <content styleCode="Enedina lics"> (CLEAR )</content> UNK NEGATIVE <content [facility] styleCode="[facility] d">Urine Medical Bilirubin Center </content>NEGA TIVE <content styleCode="Enedina lics"> (NEGATIVE )</content> Ketones NEGATIVE <content [facility] [Mass/volume] styleCode="[facility] in Urine by d">Urine Medical Test strip Ketone Center </content>NEGA TIVE MG/DL<content styleCode="Enedina lics"> (NEGATIVE MG/DL)</conten t> Specific 1.015-1.02 <content [facility] gravity of 5 styleCode="[facility] Urine by Test d">Urine Medical strip Specific Center [place] </content>1.02 5 <content styleCode="Enedina lics"> (1.015-1.025 )</content> Hemoglobin NEGATIVE <content [facility] [Presence] in styleCode="[facility] Urine by Test d">Urine Blood Medical strip </content>LARG Center E <content styleCode="Enedina lics"> (NEGATIVE )</content> Protein NEGATIVE <content [facility] [Mass/volume] styleCode="[facility] in Urine by d">Urine Medical Test strip Protein Center </content>100 MG/DL<content styleCode="Enedina lics"> (NEGATIVE MG/DL)</conten t> pH of Urine by 4.5-8.0 <content [facility] Test strip styleCode="Sandy Nehemiah d">Urine pH Medical </content>6.0 Center <content styleCode="Enedina lics"> (4.5-8.0 )</content> Urobilinogen 0.2-1.0 <content [facility] [Units/volume] styleCode="[facility] in Urine by d">Urine Medical Test strip Urobilinogen Center </content>1.0 MG/DL<content styleCode="Enedina lics"> (0.2-1.0 MG/DL)</conten t> Leukocyte NEGATIVE <content [facility] esterase styleCode="[facility] [Presence] in d">Urine Medical Urine by Test Leukocyte Center strip </content>LARG E <content styleCode="Enedina lics"> (NEGATIVE )</content> UNK 0-3 <content [facility] styleCode="[facility]iah d">Urine White Medical Blood Cell Center </content>>200 HPF<content styleCode="Enedina lics"> (0-3 HPF)</content> Nitrite NEGATIVE <content [Presence] in styleCode="[facility] Urine by Test d">Urine Medical strip Nitrite Center </content>NEGA TIVE <content styleCode="Enedina lics"> (NEGATIVE )</content> UNK 0-3 <content [facility] styleCode="[facility] d">Urine Red Medical Blood Cell Center </content>20 - 50 HPF<content styleCode="Enedina lics"> (0-3 HPF)</content> UNK NEGATIVE <content [facility] styleCode="[facility] d">Urine Medical Bacteria Center </content>MODE RATE HPF<content styleCode="Enedina lics"> (NEGATIVE HPF)</content> ID Date Data Source [id number] 09/04/2019 04:39:00 PM EDT [facility] 400 Name Value Range Interpretation Code Description Data Lenka rce(s) Supporting Document(s ) UNK <item><content [facility] styleCode="Bold"> Medical Cent er Culture Report </content>
<t able><tbody><tr>< td>Specimen Number:</td><td>[id number]</td></tr ><tr><td>Sample Collection Date/Time: </td><td> 0 4:39 PM</td></tr><tr>< td>Specimen Source:</td><td>U RINE BLADDER</td></tr> <tr><td>Urine Culture:</td><td> Collection Plate Date: 09/04/2019 17:48 </td></tr><tr><td >Culture Status:</td><td>P reliminary </td></tr><tr><td >Culture Report:</td><td>C ulture in progress </td></tr></tbody ></table></item> UNK <item><content [facility] styleCode="Bold"> Medical Cent er Culture Status </content>
<t able><tbody><tr>< td>Specimen Number:</td><td>[id number]</td></tr ><tr><td>Sample Collection Date/Time: </td><td> 0 4:39 PM</td></tr><tr>< td>Specimen Source:</td><td>U RINE BLADDER</td></tr> <tr><td>Culture Status:</td><td>P reliminary </td></tr><tr><td >Culture Report:</td><td>C ulture in progress </td></tr><tr><td >Urine Culture:</td><td> Collection Plate Date: 09/04/2019 17:48 </td></tr></tbody ></table></item> ID Date Data Source [id number] 09/04/2019 04:23:25 PM EDT NEXTG EN ([facility] [id number] [place]) Name Value Range Interpretation Description Data Sup porting Code Source(s) Document(s ) large Blood NEXTGEN ([facility]) neg Bilirubin [facility]) 1.025 [place] [facility] ([facility]) Urinalysis Color NEXTGEN dipstick panel ([facility] Automated test Medical strip [place]) Clarity [facility] ([facility]) neg Ketones [facility] ([facility]) mod Leukocytes [facility] ([facility]) Protein [facility] ([facility]) 6.0 pH NEXTGEN ([facility]) neg Nitrite NEXTGEN ([facility]) neg Glucose NEXTGEN ([facility]) neg Urobilinogen CRITICAL ACCESS HOSPITALGEN ([facility]) ID Date Data Source [id number] 09/04/2019 04:23:25 PM EDT NEXTG EN ([facility] [id number] [place]) Name Value Range Interpretation Description Data Sup porting Code Source(s) Document(s ) Choriogonadotropin neg Urine NEXTGEN ( test) ([facility] [Presence] in Urine Test [facility]) ID Date Data Source [id number] 02/16/2019 11:12:00 PM EST Mario nt [facility] 500 Name Value Range Interpretation Description Data Sup porting Code Source(s) Document(s ) UNK <item><content [facility] styleCode="[employer] d">Culture Medical Status Center </content><br/ ><table><tbody ><tr><td>Speci men Number:</td><t d>[id number]</t d></tr><tr><td >Sample Collection Date/Time: </td><td> 020 11:12 PM</td></tr><t r><td>Specimen Source:</td><t d>THROAT</td>< /tr><tr><td>Cu lture Status:</td><t d>Final </td></tr><tr> <td>Culture Report:</td><t d>NEGATIVE FOR BETA HEMOLYTIC STREPTOCOCCI </td></tr><tr> <td>Throat-Nos e Culture:</td>< td>Collection Plate Date: 02/16/2019 23:14 </td></tr></tb denton></table></ item> UNK <item><content Saygus styleCode="Sandy Nehemiah d">Culture Medical Report Center </content><br/ ><table><tbody ><tr><td>Speci men Number:</td><t d>[id number]</t d></tr><tr><td >Sample Collection Date/Time: </td><td> 020 11:12 PM</td></tr><t r><td>Specimen Source:</td><t d>THROAT</td>< /tr><tr><td>Cu lture Report:</td><t d>NEGATIVE FOR BETA HEMOLYTIC STREPTOCOCCI </td></tr><tr> <td>Throat-Nos e Culture:</td>< td>Collection Plate Date: 02/16/2019 23:14 </td></tr><tr> <td>Culture Status:</td><t d>Final </td></tr></tb denton></table></ item> Streptococcus NEGATIVE <item><content [facility] pyogenes Ag styleCode="[facility] [Presence] in d">Rapid Strep Medical Unspecified A Center specimen by </content><br/ Immunoassay ><table><tbody ><tr><td>Speci men Number:</td><t d>[id number]</t d></tr><tr><td >Sample Collection Date/Time: </td><td> 020 11:12 PM</td></tr><t r><td>Specimen Source:</td><t d>THROAT</td>< /tr><tr><td>Ra pid Strep A:</td><td>NEG ATIVE </td></tr></tb denton></table></ item> ID Date Data Source Liver 02/16/2019 11:07:00 PM EST [facility] Profile.[id number] Name Value Range Interpretation Description Data Sup porting Code Source(s) Document(s ) Alanine 7-30 <content [facility] aminotransferase styleCode="Bold"> Ubaldo hs [Enzymatic Alanine Medical activity/volume] Aminotransferase Center in Serum or Plasma (ALT) </content>11 IU/L<content styleCode="Italic s"> (7-30 IU/L)</content> Aspartate 14-36 <content [facility] aminotransferase styleCode="Bold"> Ubaldo hs [Enzymatic Aspartate Medical activity/volume] Aminotransferase Center in Serum or Plasma (AST) </content>15 IU/L<content styleCode="Italic s"> (14-36 IU/L)</content> Alkaline 38-126 <content [facility] phosphatase styleCode="Bold"> Nehemiah [Enzymatic Alkaline Medical activity/volume] Phosphatase (ALP) Cente r in Serum or Plasma </content>52 IU/L<content styleCode="Italic s"> (38-126 IU/L)</content> UNK 0.0-0.3 <content Saint styleCode="Bold"> [facility] Bilirubin, Direct Medical </content>< 0.2 Center MG/DL<content styleCode="Italic s"> (0.0-0.3 MG/DL)</content> Albumin 3.5-5.0 <content [facility] [Mass/volume] in styleCode="Bold"> Ubaldo hs Serum or Plasma Albumin Medical </content>4.4 Center G/DL<content styleCode="Italic s"> (3.5-5.0 G/DL)</content> Bilirubin.total 0.2-1.3 <content [facility] [Mass/volume] in styleCode="Bold"> Ubaldo hs Serum or Plasma Bilirubin Total Medical </content>0.3 Center MG/DL<content styleCode="Italic s"> (0.2-1.3 MG/DL)</content> ID Date Data Source HematologyRou.[id number] 02/16/2019 11:07:00 PM EST Mario nt [facility] 0500 Name Value Range Interpretation Description Data Sup porting Code Source(s) Document(s ) Erythrocytes 4.0-5.1 <content [facility] [#/volume] in styleCode="Bold [facility] Blood by ">Red Blood Medical Automated count Cell Count Center </content>4.12 MCUMM<content styleCode="Ital ics"> (4.0-5.1 MCUMM)</content > Leukocytes 4.4-11.0 Below low normal <content [facility] [#/volume] in styleCode="Bold Nehemiah Blood by ">White Blood Medical Automated count Cell Count Center </content>3.53 KCUMM L<content styleCode="Ital ics"> (4.4-11.0 KCUMM)</content > Hemoglobin 12.3-16. Below low normal <content [facility] [Mass/volume] in 0 styleCode="Bold Nehemiah Blood ">Hemoglobin Medical </content>11.7 Center G/DL L<content styleCode="Ital ics"> (12.3-16.0 G/DL)</content> Erythrocyte mean 80.0-100 <content [facility] corpuscular .0 styleCode="Bold Nehemiah volume [Entitic ">Mean Medical volume] by Corpuscular Center Automated count Volume </content>90.3 FL<content styleCode="Ital ics"> (80.0-100.0 FL)</content> Erythrocyte mean 26.0-34. <content [facility] corpuscular 0 styleCode="Bold Nehemiah hemoglobin ">Mean Medical [Entitic mass] Corposcular Center by Automated Hemoglobin count </content>28.4 PG<content styleCode="Ital ics"> (26.0-34.0 PG)</content> Hematocrit 36.0-46. <content [facility] [Volume 0 styleCode="Bold Nehemiah Fraction] of ">Hematocrit Medical Blood by </content>37.2 Center Automated count %<content styleCode="Ital ics"> (36.0-46.0 %)</content> Erythrocyte 11.5-14. <content [facility] distribution 5 styleCode="Bold Nehemiah width [Ratio] by ">Red Cell Medical Automated count Distribution Center Width </content>12.3 %<content styleCode="Ital ics"> (11.5-14.5 %)</content> Platelet mean 8.0-11.0 <content [facility] volume [Entitic styleCode="Bold Nehemiah volume] in Blood ">Mean Platelet Medical by Automated Volume Center count </content>9.6 FL<content styleCode="Ital ics"> (8.0-11.0 FL)</content> Platelets 130-400 <content [facility] [#/volume] in styleCode="Bold Nehemiah Blood by ">Platelet Medical Automated count Count Center </content>227 KCUMM<content styleCode="Ital ics"> (130-400 KCUMM)</content > Erythrocyte mean 32.0-37. Below low normal <content [facility] corpuscular 0 styleCode="Bold Nehemiah hemoglobin ">Mean Corpus. Medical concentration Hgb Center [Mass/volume] by Concentration Automated count (MCHC) </content>31.5 G/DL L<content styleCode="Ital ics"> (32.0-37.0 G/DL)</content> UNK 0.0 <content [facility] styleCode="Bold Nehemiah ">Nucleated Red Medical Blood Cell Center Count </content>0.00 KCUMM<content styleCode="Ital ics"> (0.0 KCUMM)</content > UNK 0 <content [facility] styleCode="Bold Nehemiah ">Nucleated Red Medical Blood Cell Center </content>0.0 /100<content styleCode="Ital ics"> (0 /100)</content> ID Date Data Source GFR(Creatinine).[id number] 02/16/2019 11:07:00 PM [facility] 0-0500 Name Value Range Interpretation Code Description Data Lenka rce(s) Supporting Document(s ) UNK > 60 <content [facility] styleCode="Bold"> Medical Cent er EGFR </content>97 GFR<content styleCode="Italic s"> (> 60 GFR)</content> ID Date Data Source CHMROUTINECCDA.[id number] 02/16/2019 11:07:00 PM [facility] -0500 Name Value Range Interpretation Description Data Sup porting Code Source(s) Document(s ) Lipase 23-300 <content [facility] [Enzymatic styleCode="Bold Medical activity/vo ">Lipase Center lume] in </content>32 Serum or IU/L<content Plasma styleCode="Ital ics"> (23-300 IU/L)</content> ID Date Data Source BMP.[id number] 02/16/2019 11:07:00 PM EST [facility] Name Value Range Interpretation Description Data Sup porting Code Source(s) Document(s ) Potassium 3.5-5.3 <content [facility] [Moles/volume] in styleCode="Bold"> [facility] Serum or Plasma Potassium Medical </content>4.0 Center MEQ/L<content styleCode="Italic s"> (3.5-5.3 MEQ/L)</content> Chloride 98-107 <content [facility] [Moles/volume] in styleCode="Bold"> [facility] phs Serum or Plasma Chloride Medical </content>104 Center MEQ/L<content styleCode="Italic s"> (98-107 MEQ/L)</content> Sodium 137-145 <content [facility] [Moles/volume] in styleCode="Bold"> [facility] Serum or Plasma Sodium Medical </content>140 Center MEQ/L<content styleCode="Italic s"> (137-145 MEQ/L)</content> Carbon dioxide, 22-30 <content [facility] total styleCode="Bold"> Nehemiah [Moles/volume] in Carbon Dioxide Medical Serum or Plasma </content>26 Center MEQ/L<content styleCode="Italic s"> (22-30 MEQ/L)</content> Glucose 74-106 <content [facility] [Mass/volume] in styleCode="Bold"> Ubaldo hs Serum or Plasma Glucose Medical </content>91 Center MG/DL<content styleCode="Italic s"> (74-106 MG/DL)</content> UNK 7-17 <content [facility] styleCode="Bold"> Nehemiah BUN </content>14 Medical MG/DL<content Center styleCode="Italic s"> (7-17 MG/DL)</content> Creatinine 0.5-1.3 <content [facility] [Mass/volume] in styleCode="Bold"> Ubaldo hs Serum or Plasma Creatinine Medical </content>0.8 Center MG/DL<content styleCode="Italic s"> (0.5-1.3 MG/DL)</content> Aspartate 14-36 <content [facility] aminotransferase styleCode="Bold"> Ubaldo hs [Enzymatic Aspartate Medical activity/volume] Aminotransferase Center in Serum or Plasma (AST) </content>15 IU/L<content styleCode="Italic s"> (14-36 IU/L)</content> UNK > 60 <content [facility] styleCode="Bold"> [facility] EGFR </content>97 Medical GFR<content Center styleCode="Italic s"> (> 60 GFR)</content> Calcium 8.4-10. <content [facility] [Mass/volume] in 2 styleCode="Bold"> Ubaldo hs Serum or Plasma Calcium Medical </content>9.5 Center MG/DL<content styleCode="Italic s"> (8.4-10.2 MG/DL)</content> Albumin 3.5-5.0 <content [facility] [Mass/volume] in styleCode="Bold"> Ubaldo hs Serum or Plasma Albumin Medical </content>4.4 Center G/DL<content styleCode="Italic s"> (3.5-5.0 G/DL)</content> Alanine 7-30 <content [facility] aminotransferase styleCode="Bold"> Ubaldo hs [Enzymatic Alanine Medical activity/volume] Aminotransferase Center in Serum or Plasma (ALT) </content>11 IU/L<content styleCode="Italic s"> (7-30 IU/L)</content> Alkaline 38-126 <content [facility] phosphatase styleCode="Bold"> Nehemiah [Enzymatic Alkaline Medical activity/volume] Phosphatase (ALP) Cente r in Serum or Plasma </content>52 IU/L<content styleCode="Italic s"> (38-126 IU/L)</content> Bilirubin.total 0.2-1.3 <content [facility] [Mass/volume] in styleCode="Bold"> Ubaldo hs Serum or Plasma Bilirubin Total Medical </content>0.3 Center MG/DL<content styleCode="Italic s"> (0.2-1.3 MG/DL)</content> ID Date Data Source Urinalysis.[id number] 02/16/2019 11:07:00 PM EST Mario nt [facility] 0 Name Value Range Interpretation Description Data Sup porting Code Source(s) Document(s ) Glucose NEGATIVE <content [facility] [Mass/volume] styleCode="Sandy Cerna in Urine by d">Urine Medical Test strip Glucose Center </content>NEGA TIVE MG/DL<content styleCode="Enedina lics"> (NEGATIVE MG/DL)</conten t> UNK CLEAR <content [facility] styleCode="Sandy Lawrences d">Urine Medical Clarity Center </content>KRISTY R <content styleCode="Enedina lics"> (CLEAR )</content> Color of Urine YELLOW <content [facility] styleCode="Sandy Nehemiah d">Color, Medical Urine Center </content>YELL OW <content styleCode="Enedina lics"> (YELLOW )</content> UNK NEGATIVE <content [facility] styleCode="Sandy Nehemiah d">Urine Medical Bilirubin Center </content>NEGA TIVE <content styleCode="Enedina lics"> (NEGATIVE )</content> Ketones NEGATIVE <content [facility] [Mass/volume] styleCode="Sandy Lawrences in Urine by d">Urine Medical Test strip Ketone Center </content>TRAC E MG/DL<content styleCode="Enedina lics"> (NEGATIVE MG/DL)</conten t> Specific 1.015-1.02 <content [facility] gravity of 5 styleCode="Sandy Cerna Urine by Test d">Urine Medical strip Specific Center [place] </content>1.02 0 <content styleCode="Enedina lics"> (1.015-1.025 )</content> Hemoglobin NEGATIVE <content [facility] [Presence] in styleCode="Sandy Cerna Urine by Test d">Urine Blood Medical strip </content>NEGA Center TIVE <content styleCode="Enedina lics"> (NEGATIVE )</content> pH of Urine by 4.5-8.0 <content [facility] Test strip styleCode="Sandy Nehemiah d">Urine pH Medical </content>8.0 Center <content styleCode="Enedina lics"> (4.5-8.0 )</content> Protein NEGATIVE <content [facility] [Mass/volume] styleCode="Sandy Lawrences in Urine by d">Urine Medical Test strip Protein Center </content>NEGA TIVE MG/DL<content styleCode="Enedina lics"> (NEGATIVE MG/DL)</conten t> Urobilinogen 0.2-1.0 Above high <content [facility] [Units/volume] normal styleCode="Sandy Cerna in Urine by d">Urine Medical Test strip Urobilinogen Center </content>2.0 MG/DL H<content styleCode="Enedina lics"> (0.2-1.0 MG/DL)</conten t> Nitrite NEGATIVE <content [facility] [Presence] in styleCode="Sandy Cerna Urine by Test d">Urine Medical strip Nitrite Center </content>NEGA TIVE <content styleCode="Enedina lics"> (NEGATIVE )</content> Leukocyte NEGATIVE <content [facility] esterase styleCode="Sandy Lawrences [Presence] in d">Urine Medical Urine by Test Leukocyte Center strip </content>NEGA TIVE <content styleCode="Enedina lics"> (NEGATIVE )</content> ID Date Data Source HematologyRou.[id number] 11/12/2018 01:53:00 PM EDT Mario [facility] 0400 Name Value Range Interpretation Description Data Sup porting Code Source(s) Document(s ) Hemoglobin 12.3-16. Below low normal <content [facility] [Mass/volume] in 0 styleCode="Bold Nehemiah Blood ">Hemoglobin Medical </content>11.0 Center G/DL L<content styleCode="Ital ics"> (12.3-16.0 G/DL)</content> Leukocytes 4.4-11.0 <content [facility] [#/volume] in styleCode="Bold Nehemiah Blood by ">White Blood Medical Automated count Cell Count Center </content>4.58 KCUMM<content styleCode="Ital ics"> (4.4-11.0 KCUMM)</content > Erythrocytes 4.0-5.1 Below low normal <content [facility] [#/volume] in styleCode="Bold Nehemiah Blood by ">Red Blood Medical Automated count Cell Count Center </content>3.79 MCUMM L<content styleCode="Ital ics"> (4.0-5.1 MCUMM)</content > Hematocrit 36.0-46. Below low normal <content [facility] [Volume 0 styleCode="Bold Nehemiah Fraction] of ">Hematocrit Medical Blood by </content>34.2 Center Automated count % L<content styleCode="Ital ics"> (36.0-46.0 %)</content> Erythrocyte mean 80.0-100 <content [facility] corpuscular .0 styleCode="Bold Nehemiah volume [Entitic ">Mean Medical volume] by Corpuscular Center Automated count Volume </content>90.2 FL<content styleCode="Ital ics"> (80.0-100.0 FL)</content> Erythrocyte mean 32.0-37. <content [facility] corpuscular 0 styleCode="Bold Nehemiah hemoglobin ">Mean Corpus. Medical concentration Hgb Center [Mass/volume] by Concentration Automated count (MCHC) </content>32.2 G/DL<content styleCode="Ital ics"> (32.0-37.0 G/DL)</content> Erythrocyte mean 26.0-34. <content [facility] corpuscular 0 styleCode="Bold Nehemiah hemoglobin ">Mean Medical [Entitic mass] Corposcular Center by Automated Hemoglobin count </content>29.0 PG<content styleCode="Ital ics"> (26.0-34.0 PG)</content> Erythrocyte 11.5-14. <content [facility] distribution 5 styleCode="Bold Nehemiah width [Ratio] by ">Red Cell Medical Automated count Distribution Center Width </content>12.4 %<content styleCode="Ital ics"> (11.5-14.5 %)</content> UNK 0 <content [facility] styleCode="Bold Nehemiah ">Nucleated Red Medical Blood Cell Center </content>0.0 /100<content styleCode="Ital ics"> (0 /100)</content> Platelets 130-400 <content [facility] [#/volume] in styleCode="Bold Nehemiah Blood by ">Platelet Medical Automated count Count Center </content>222 KCUMM<content styleCode="Ital ics"> (130-400 KCUMM)</content > Platelet mean 8.0-11.0 <content [facility] volume [Entitic styleCode="Bold Nehemiah volume] in Blood ">Mean Platelet Medical by Automated Volume Center count </content>10.1 FL<content styleCode="Ital ics"> (8.0-11.0 FL)</content> UNK 0.0 <content [facility] styleCode="Bold Nehemiah ">Nucleated Red Medical Blood Cell Center Count </content>0.00 KCUMM<content styleCode="Ital ics"> (0.0 KCUMM)</content > ID Date Data Source GFR(Creatinine).[id number] 11/12/2018 01:53:00 PM EDT [facility] 0-0400 Name Value Range Interpretation Code Description Data Lenka rce(s) Supporting Document(s ) UNK > 60 <content [facility] styleCode="Bold"> Medical Cent er EGFR </content>164 GFR<content styleCode="Italic s"> (> 60 GFR)</content> ID Date Data Source [facility].[id number] 11/12/2018 01:53:00 PM EDT [facility] Name Value Range Interpretation Description Data Sup porting Code Source(s) Document(s ) Sodium 137-145 <content [facility] [Moles/volume] styleCode="Sandy Nehemiah in Serum or d">Sodium Medical Plasma </content>142 Center MEQ/L<content styleCode="Enedina lics"> (137-145 MEQ/L)</conten t> Carbon 22-30 <content [facility] dioxide, total styleCode="Sandy Nehemiah [Moles/volume] d">Carbon Medical in Serum or Dioxide Center Plasma </content>28 MEQ/L<content styleCode="Enedina lics"> (22-30 MEQ/L)</conten t> Chloride 98-107 <content [facility] [Moles/volume] styleCode="Sandy Nehemiah in Serum or d">Chloride Medical Plasma </content>105 Center MEQ/L<content styleCode="Enedina lics"> (98-107 MEQ/L)</conten t> Potassium 3.5-5.3 <content [facility] [Moles/volume] styleCode="Sandy Cerna in Serum or d">Potassium Medical Plasma </content>4.4 Center MEQ/L<content styleCode="Enedina lics"> (3.5-5.3 MEQ/L)</conten t> Glucose 74-106 <content [facility] [Mass/volume] styleCode="Sandy Cerna in Serum or d">Glucose Medical Plasma </content>81 Center MG/DL<content styleCode="Enedina lics"> (74-106 MG/DL)</conten t> Creatinine 0.5-1.3 <content [facility] [Mass/volume] styleCode="Sandy Cerna in Serum or d">Creatinine Medical Plasma </content>0.6 Center MG/DL<content styleCode="Enedina lics"> (0.5-1.3 MG/DL)</conten t> Calcium 8.4-10.2 <content [facility] [Mass/volume] styleCode="Sandy Cerna in Serum or d">Calcium Medical Plasma </content>9.7 Center MG/DL<content styleCode="Enedina lics"> (8.4-10.2 MG/DL)</conten t> UNK 7-17 <content [facility] styleCode="Sandy Lawrences d">BUN Medical </content>9 Center MG/DL<content styleCode="Enedina lics"> (7-17 MG/DL)</conten t> UNK > 60 <content [facility] styleCode="Sandy Lawrences d">EGFR Medical </content>164 Center GFR<content styleCode="Enedina lics"> (> 60 GFR)</content> ID Date Data Source Urinalysis.[id number] 11/12/2018 01:52:00 PM EDT [facility] 0 Name Value Range Interpretation Description Data Sup porting Code Source(s) Document(s ) Glucose NEGATIVE <content [facility] [Mass/volume] styleCode="Sandy Cerna in Urine by d">Urine Medical Test strip Glucose Center </content>NEGA TIVE MG/DL<content styleCode="Enedina lics"> (NEGATIVE MG/DL)</conten t> Color of Urine YELLOW <content [facility] styleCode="Sandy Lawrences d">Color, Medical Urine Center </content>AMBE R <content styleCode="Enedina lics"> (YELLOW )</content> UNK CLEAR <content [facility] styleCode="Sandy Nehemiah d">Urine Medical Clarity Center </content>HAZY <content styleCode="Enedina lics"> (CLEAR )</content> UNK NEGATIVE <content [facility] styleCode="Sandy Nehemiah d">Urine Medical Bilirubin Center </content>SMAL L <content styleCode="Enedina lics"> (NEGATIVE )</content> Hemoglobin NEGATIVE <content [facility] [Presence] in styleCode="Sandy Lawrences Urine by Test d">Urine Blood Medical strip </content>NEGA Center TIVE <content styleCode="Enedina lics"> (NEGATIVE )</content> Specific 1.015-1.02 <content [facility] gravity of 5 styleCode="Sandy Lawrences Urine by Test d">Urine Medical strip Specific Center [place] </content>1.02 0 <content styleCode="Enedina lics"> (1.015-1.025 )</content> Ketones NEGATIVE <content [facility] [Mass/volume] styleCode="Sandy Nehemiah in Urine by d">Urine Medical Test strip Ketone Center </content>15 MG/DL<content styleCode="Enedina lics"> (NEGATIVE MG/DL)</conten t> Urobilinogen 0.2-1.0 Above high <content [facility] [Units/volume] normal styleCode="Sandy Nehemiah in Urine by d">Urine Medical Test strip Urobilinogen Center </content>2.0 MG/DL H<content styleCode="Enedina lics"> (0.2-1.0 MG/DL)</conten t> Protein NEGATIVE <content [facility] [Mass/volume] styleCode="Sandy Nehemiah in Urine by d">Urine Medical Test strip Protein Center </content>TRAC E MG/DL<content styleCode="Enedina lics"> (NEGATIVE MG/DL)</conten t> pH of Urine by 4.5-8.0 <content [facility] Test strip styleCode="Sandy Lawrences d">Urine pH Medical </content>6.5 Center <content styleCode="Enedina lics"> (4.5-8.0 )</content> Nitrite NEGATIVE <content [facility] [Presence] in styleCode="Sandy Cerna Urine by Test d">Urine Medical strip Nitrite Center </content>NEGA TIVE <content styleCode="Enedina lics"> (NEGATIVE )</content> Leukocyte NEGATIVE <content [facility] esterase styleCode="Sandy Cerna [Presence] in d">Urine Medical Urine by Test Leukocyte Center strip </content>NEGA TIVE <content styleCode="Enedina lics"> (NEGATIVE )</content> UNK 0-3 <content [facility] styleCode="Sandy Lawrences d">Urine White Medical Blood Cell Center </content>0-3 HPF<content styleCode="Enedina lics"> (0-3 HPF)</content> UNK 0-3 <content [facility] styleCode="Sandy Lawrences d">Urine Red Medical Blood Cell Center </content>10 - 20 HPF<content styleCode="Enedina lics"> (0-3 HPF)</content> UNK NEGATIVE <content [facility] styleCode="Sandy Lawrences d">Urine Medical Bacteria Center </content>MANY HPF<content styleCode="Enedina lics"> (NEGATIVE HPF)</content> ID Date Data Source Urinalysis.[id number] 10/25/2018 08:17:00 PM [facility] Name Value Range Interpretation Description Data Sup porting Code Source(s) Document(s ) Color of Urine YELLOW <content [facility] styleCode="Sandy Lawrences d">Color, Medical Urine Center </content>YELL OW <content styleCode="Enedina lics"> (YELLOW )</content> Glucose NEGATIVE <content [facility] [Mass/volume] styleCode="Sandy Cerna in Urine by d">Urine Medical Test strip Glucose Center </content>NEGA TIVE MG/DL<content styleCode="Enedina lics"> (NEGATIVE MG/DL)</conten t> UNK CLEAR <content [facility] styleCode="Sandy Lawrences d">Urine Medical Clarity Center </content>KRISTY R <content styleCode="Enedina lics"> (CLEAR )</content> UNK NEGATIVE <content [facility] styleCode="Sandy Lawrences d">Urine Medical Bilirubin Center </content>NEGA TIVE <content styleCode="Enedina lics"> (NEGATIVE )</content> Ketones NEGATIVE <content [facility] [Mass/volume] styleCode="Sandy Lawrences in Urine by d">Urine Medical Test strip Ketone Center </content>NEGA TIVE MG/DL<content styleCode="Enedina lics"> (NEGATIVE MG/DL)</conten t> Specific 1.015-1.02 <content [facility] gravity of 5 styleCode="Sandy Cerna Urine by Test d">Urine Medical strip Specific Center [place] </content>1.02 5 <content styleCode="Enedina lics"> (1.015-1.025 )</content> pH of Urine by 4.5-8.0 <content [facility] Test strip styleCode="Sandy Lawrences d">Urine pH Medical </content>6.5 Center <content styleCode="Enedina lics"> (4.5-8.0 )</content> Protein NEGATIVE <content [facility] [Mass/volume] styleCode="Sandy Lawrences in Urine by d">Urine Medical Test strip Protein Center </content>NEGA TIVE MG/DL<content styleCode="Enedina lics"> (NEGATIVE MG/DL)</conten t> Hemoglobin NEGATIVE <content [facility] [Presence] in styleCode="Sandy Cerna Urine by Test d">Urine Blood Medical strip </content>NEGA Center TIVE <content styleCode="Enedina lics"> (NEGATIVE )</content> Urobilinogen 0.2-1.0 <content [facility] [Units/volume] styleCode="Sandy Lawrences in Urine by d">Urine Medical Test strip Urobilinogen Center </content>1.0 MG/DL<content styleCode="Enedina lics"> (0.2-1.0 MG/DL)</conten t> Nitrite NEGATIVE <content [facility] [Presence] in styleCode="Sandy Cerna Urine by Test d">Urine Medical strip Nitrite Center </content>NEGA TIVE <content styleCode="Enedina lics"> (NEGATIVE )</content> Leukocyte NEGATIVE <content [facility] esterase styleCode="Sandy Cerna [Presence] in d">Urine Medical Urine by Test Leukocyte Center strip </content>NEGA TIVE <content styleCode="Enedina lics"> (NEGATIVE )</content> Procedure Social History Code Duration Value Status Description Data Source(s ) Caffeine Use 09/04/2019 completed NEXTGEN (Mario nt Details 12:00:[address] [facility]) 09/04/2019 Current completed Current NEXTGEN ([facility] 12:00:00 AM non-smoker non-smoker [facility]) Smoking 09/04/2019 Unknown if ever completed Unknown if ever NEXT GEN ([facility] 12:00:[address] [facility]) Smoking 02/16/2019 Occasional completed Occasional Smoker [facility] 11:[facility] EST Smoking 02/16/2019 Occasional completed Occasional Smoker [facility] 11:02:00 PM Smoker Medical Cente r EST Smoking 02/16/2019 Occasional completed Occasional Smoker [facility] 10[facility]37:00 PM Smoker Medical Cente r EST Smoking 11/12/2018 Occasional completed Occasional Smoker [facility] 02:00:00 PM Smoker Medical Cente r EDT Smoking 11/12/2018 Occasional completed Occasional Smoker [facility] 01:26:00 PM Smoker Medical Cente r EDT Smoking 11/12/2018 Occasional completed Occasional Smoker [facility] 01:15:00 PM Smoker Medical Cente r EDT Smoking 11/12/2018 Occasional completed Occasional Smoker [facility] 12:03:00 PM Smoker Medical Cente r EDT Smoking 10/25/2018 Occasional completed Occasional Smoker [facility] 08:08:00 PM Smoker Medical Cente r EDT Smoking 10/25/2018 Occasional completed Occasional Smoker [facility] 07:[facility]00 [facility]T Vital Signs ID Date Data Source UNK Name Value Range Interpretation Code Description Data Source(s) Oxygen saturation 100 % 100 % NEXTGEN ([facility] in Arterial blood [facility] by Pulse oximetry Center) Body mass index 25.20 kg/m2 Overweight 25.20 kg/m2 [facility] ([facility] (BMI) [Ratio] [facility]) Respiratory rate 18 /min 18 /min [facility] ([facility]) Body temperature 36.94 Sandra 36.94 Sandra [facility] ([facility]) Heart rate 51 /min 51 /min [facility] ([facility]) Diastolic blood 58 mm[Hg] 58 mm[Hg] [facility] ( [facility] pressure [facility]) Systolic blood 102 mm[Hg] 102 mm[Hg] [facility] ([facility]) Body weight 70.398 kg 70.398 kg [facility] ([facility]) Body height 167.13 cm 167.13 cm [facility] ([facility]) Body temperature 37.936176 37.443253 [facility] Respiratory rate 17 /min 17 /min [facility] Oxygen saturation 98 % 98 % [facility] by Pulse oximetry Heart rate 75 /min 75 /min [facility] Diastolic blood 60 mm[Hg] 60 mm[Hg] [facility] Systolic blood 117 mm[Hg] 117 mm[Hg] [facility] Body weight 73.491405 kg 73.297077 kg [facility] Body temperature 37.185686 37.966445 [facility] Respiratory rate 18 /min 18 /min [facility] Oxygen saturation 98 % 98 % [facility] by Pulse oximetry Heart rate 65 /min 65 /min [facility] Diastolic blood 68 mm[Hg] 68 mm[Hg] [facility] Systolic blood 133 mm[Hg] 133 mm[Hg] [facility] Body temperature 37.748087 37.036557 [facility] Respiratory rate 16 /min 16 /min [facility] Oxygen saturation 99 % 99 % [facility] by Pulse oximetry Heart rate 62 /min 62 /min [facility] Diastolic blood 70 mm[Hg] 70 mm[Hg] [facility] Systolic blood 130 mm[Hg] 130 mm[Hg] [facility] Body temperature 36.841088 36.671622 [facility] Respiratory rate 17 /min 17 /min [facility] Oxygen saturation 99 % 99 % [facility] blood [facility] by Pulse oximetry Heart rate 50 /min 50 /min [facility] Diastolic blood 73 mm[Hg] 73 mm[Hg] [facility] Center Systolic blood 139 mm[Hg] 139 mm[Hg] [facility] Body weight 68.570770 kg 68.683494 kg [facility] Body temperature 36.061185 36.451157 [facility] Respiratory rate 17 /min 17 /min [facility] Oxygen saturation 100 % 100 % [facility] by Pulse oximetry Heart rate 52 /min 52 /min [facility] Body height 167.341739 167.781218 cm [facility] Diastolic blood 58 mm[Hg] 58 mm[Hg] [facility] Systolic blood 148 mm[Hg] 148 mm[Hg] [facility] Body mass index 24.2 kg/m2 24.2 kg/m2 [facility] (BMI) [Ratio] Medical [facility] ter Body weight 54.578048 kg 54.827314 kg [facility] Body temperature 36.061968 36.922905 [facility] Respiratory rate 18 /min 18 /min [facility] Oxygen saturation 98 % 98 % [facility] by Pulse oximetry Heart rate 64 /min 64 /min [facility] Body height 167.105270 167.117325 cm [facility] Diastolic blood 69 mm[Hg] 69 mm[Hg] [facility] Systolic blood 125 mm[Hg] 125 mm[Hg] [facility] Body mass index 19.3 kg/m2 19.3 kg/m2 [facility] (BMI) [Ratio] Medical [place] [facility] ter Patient Treatment Plan of Care Planned Activity Planned Date Details Description Data Source (s) Sulfamethoxazole 800 MG / 09/04/2019 NE XTGEN ([facility] Trim[facility]oprim 160 MG Oral 12:00:00 AM [facility] [Bactrim] [place])
[2019-11-22 17:40] LABS: HCG,QUALITATIVE URINE Positive
[2019-11-22 17:43] LABS: EPI CELLS >36 /uL (0-25.1); HYALINE CASTS 20 /uL (0-3.1); PH,URINE 5.5 (5.0-8.0); URINE APPEARANCE TURBID; URINE BACTERIA >9,000 /uL (0-1359); URINE BILIRUBIN NEGATIVE (NEGATIVE); URINE COLOR YELLOW; URINE GLUCOSE (UA) NEGATIVE (NEGATIVE); URINE KETONE TRACE (NEGATIVE); URINE LEUK ESTERASE 2+ (NEGATIVE); URINE NITRITE NEGATIVE (NEGATIVE); URINE PROTEIN TRACE (NEGATIVE); URINE RBC 7 /uL (0-23.9); URINE WBC 504 /uL (0-25.8)
[2019-11-22] MEDS ORDERED: ONDANSETRON *ODT* 4 MG TABLET SL ONE (18:23)
--- NOTE | 2019-11-22 18:44 | PDOC ---
History of Present Illness - General Chief Complaint: ,Possible Stated Complaint: STOMACH PAIN Time Seen by Provider: 11/22/19 16:55 History Source: Patient Exam Limitations: Clinical Condition - History of Present Illness Travel History: No Initial Comments: 11/22/19 18:40 Patient with no significant past medical history present with complaint of one- week history of suprapubic cramping abdominal pain and no menstrual period for a month. Patient reported LMP October 11. Denies vaginal bleeding. Report urinary frequency with nausea and breast pains. Denies fever, chills, back pains, vomiting. Denies any other symptoms Timing/Duration: reports: other (1 week) Quality: reports: mild, cramping Abdominal Pain Onset Location: reports: suprapubic Pain Radiation: reports: no radiation Past History - Medical History Allergies/Adverse Reactions: Allergies Allergy/AdvReac Type Severity Reaction Status Date / Time No Known Allergies Allergy Verified 11/22/19 16:39 Home Medications: Ambulatory Orders Ondansetron HCl [Zofran] 4 mg PO QID #14 tablet 02/19/19 Oxycodone HCl/Acetaminophen [Percocet 5/325 -] 1 tab PO Q4H #8 tablet MDD 6 02/19/19 Cephalexin Monohydrate [Keflex -] 500 mg PO BID 7 Days #14 capsule 11/22/19 Ondansetron [Zofran *Odt*] 4 mg SL Q8H PRN #21 od.tablet 11/22/19 Asthma: Yes COPD: No Thyroid Disease: No - Reproductive History Is Patient Now?: Yes (#): 0 Para: 0 Therapeutic (s) & number: No Spontaneous : 0 - Immunization History Immunization Up to Date: Yes - Psycho-Social/Smoking History Smoking Status: No Smoking History: Never smoked Have you smoked in the past 12 months: No Number of Cigarettes Smoked Daily: 0 - Substance Abuse Hx (Audit-C & DAST Scrn) How often the patient has a drink containing alcohol: Never Score: In Men: 4 or > Positive; In Women: 3 or > Positive: 0 Screen Result (Pos requires Nsg. Audit-10AR): Negative In the last yr the pt used illegal drug/Rx for NonMed reason: No Score: Yes response is considered Positive: 0 Screen Result (Positive result requires Nsg. DAST-10): Negative Review of Systems - Review of Systems Able to Perform ROS?: Yes Is the patient limited Tristanian proficient: No Constitutional: No: Chills, Fever, Malaise HEENTM: No: Symptoms Reported, See HPI, Eye Pain, Blurred Vision, Tearing, Recent change in vision, Double Vision, Cataracts, Ear Pain, Ocular Prothesis, Ear Discharge, Nose Pain, Nose Congestion, Tinnitus, Nose Bleeding, Hearing Lo ss, Throat Pain, Throat Swelling, Mouth Pain, Dental Problems, Difficulty Swallowing, Mouth Swelling, Other Respiratory: No: Symptoms reported, See HPI, Cough, Orthopnea, Shortness of Breath, SOB with Exertion, SOB at Rest, Stridor, Wheezing, Productive cough, Hemoptysis, Other Cardiac (ROS): No: Symptoms Reported, See HPI, Chest Pain, Edema, Irregular Heart Rate, Lightheadedness, Palpitations, Syncope, Chest Tightness, Other ABD/GI: Yes: Symptoms Reported, See HPI, Abdominal cramping. No: Blood Streaked Bowels, Constipated, Diarrhea, Difficulty Swallowing, Nausea, Vomiting : Yes: Symptoms Reported, See HPI, Discharge, Frequency. No: Burning, Dysuria, Urgency, Other (no vaginal bleeding) Musculoskeletal: No: Symptoms Reported, See HPI, Back Pain Integumentary: No: Symptoms Reported Neurological: No: Symptoms reported, Headache, Dizziness All Other Systems: Reviewed and Negative *Physical Exam - Vital Signs Last Vital Signs Temp Pulse Resp BP Pulse Ox 98.3 F 79 16 108/58 L 100 11/22/19 16:39 11/22/19 16:39 11/22/19 16:39 11/22/19 16:39 11/22/19 16:39 - Physical Exam General Appearance: Yes: Nourished, Appropriately Dressed. No: Apparent Distress HEENT: positive: Normal ENT Inspection Neck: positive: Supple Respiratory/Chest: positive: Lungs Clear, Normal Breath Sounds. negative: Chest Tender, Respiratory Distress, Accessory Muscle Use, Wheezing Cardiovascular: positive: Regular Rhythm, Regular Rate Female Pelvic Exam: positive: normal external exam, cervical os closed, normal adnexa, discharge (moderate amount of thick white d/c in vaginal vault). negative: CMT, vaginal bleeding Gastrointestinal/Abdominal: positive: Normal Bowel Sounds, Flat. negative: Tender, Guarding, Rebound Musculoskeletal: positive: Normal Inspection. negative: CVA Tenderness Extremity: positive: Normal Capillary Refill, Normal Inspection, Normal Range of Motion Integumentary: positive: Normal Color Neurologic: positive: field representatives director II-XII NML intact, Fully Oriented, Alert, Normal Mood/Affect, Normal Response, Motor Strength 5/5 ED Treatment Course - LABORATORY CBC & Chemistry Diagram: 11/22/19 18:25 - ADDITIONAL ORDERS Additional order review: Laboratory Results 11/22/19 17:00 Urine Color Yellow Urine Appearance Turbid Urine pH 5.5 D Ur Specific [place] 1.035 Urine Protein Trace Urine Glucose (UA) Negative Urine Ketones Trace H Urine Blood Negative Urine Nitrite Negative Urine Bilirubin Negative Urine Urobilinogen 1.0 Ur Leukocyte Esterase 2+ H Urine WBC (Auto) 504 Urine RBC (Auto) 7 Urine Casts (Auto) 20 U Epithel Cells (Auto) >36 Urine Bacteria (Auto) >9,000 Urine HCG, Qual Positive Medical Decision Making - Medical Decision Making 11/22/19 18:41 Patient with no significant past medical history present with complaint of one- week history of suprapubic cramping abdominal pain and no menstrual period for a month. Patient reported LMP October 11. Denies vaginal bleeding. Report urinary frequency with nausea and breast pains. Denies fever, chills, back pains, vomiting. Denies any other symptoms Clinical exam unremarkable except white thick vaginal discharge in vaginal vault. Cervical os closed. No cervical motion tenderness. No abdominal tenderness on exam with patient in no acute distress. Patient afebrile. Symptoms likely related versus cystitis. Urine test positive. UA pending. Beta hCG ordered to trend and transvaginal ultrasound ordered to rule out ectopic. Treat based on beta- hCG and ultrasound result. Zofran 4 mg sublingual ordered for nausea 11/22/19 20:24 UA shows leukocytosis with many WBCs. Beta hCG 17,000+. Transvaginal ultrasound shows live IUP with crown-rump length consistent of 6 weeks gesta tional age. Patient asymptomatic now and stable for discharge with PULMONOLOGIST. Patient has appointment at [facility] in a week to establish OB care. Patient stable for discharge 11/22/19 20:25 Patient discharged home on Keflex antibiotic for UTI and Zofran PRN for nausea and vomiting Discharge - Discharge Information Problems reviewed: Yes Clinical Impression/Diagnosis: UTI (urinary tract infection) during Qualifiers: Trimester: first trimester Qualified Code(s): O23.41 - Unspecified infection of urinary tract in , first trimester Abdominal pain in Qualifiers: Trimester: first trimester Qualified Code(s): O26.891 - Other specified related conditions, first trimester Condition: Stable Disposition: HOME - Admission No - Additional Discharge Information Prescriptions: Cephalexin Monohydrate [Keflex -] 500 mg PO BID 7 Days #14 capsule Ondansetron [Zofran *Odt*] 4 mg SL Q8H PRN #21 od.tablet PRN Reason: nausea - Follow up/Referral Referrals: [facility] [Provider Group] - Patient Discharge Instructions Patient Printed Discharge Instructions: DI for Urinary Tract Infection (UTI) Additional Instructions: hormone level was 17,000+. Your ultrasound shows of 6 weeks in the uterus. Your urine shows bacteria in the urine which you are being treated for UTI. Follow-up with your PULMONOLOGIST as scheduled next week - Post Discharge Activity
[2019-11-22 19:12] LABS: BASO % 0.5 % (0-2.0); HEMATOCRIT 37.9 % (32.4-45.2); HEMOGLOBIN 12.4 GM/dL (10.7-15.3); LYMPH % 40.6 % (8-40); MCH 29.1 pg (25.7-33.7); MCHC 32.6 g/dl (32.0-36.0); MEAN CELL VOLUME 89.1 fl (80-96); MEAN PLT VOLUME 8.2 fl (7.5-11.1); MONO % 9.2 % (3.8-10.2); NEUT % 48.7 % (42.8-82.8); PLATELET COUNT 272 K/MM3 (134-434); RBC 4.25 M/mm3 (3.60-5.2); RDW 12.8 % (11.6-15.6); WHITE BLOOD COUNT 4.5 K/mm3 (4.0-10.0)
[2019-11-22] MEDS ORDERED: ONDANSETRON *ODT* 4 MG TABLET ONE (19:32)
== END 2019-11-22 20:05 | disposition home or self-care (01) ==
LOC: JER 16:33
DX: O23.41 Unspecified infection of urinary tract in pregnancy, first trimester (principal); O26.891 Other specified pregnancy related conditions, first trimester
CPT/HCPCS: 36415; 76817-TC; 81003; 84702; 84703; 85025; 87070; 87077; 87086; 87205; 87491; 87591; 87661; 99284-25; Q0162

== ENCOUNTER 2020-05-16 12:55 | Emergency (ER) | payer OTHER ==
[2020-05-16 13:22] VITALS: BMI 30.2
[2020-05-16 13:55] VITALS: BP 115/63; PULSE 83; TEMP 97.2
[2020-05-16] MEDS ORDERED: DEXTROSE 5%-LACTATED RINGERS 500 ML IV ONE ×2 (14:00→15:00)
[2020-05-16] MEDS ORDERED: CEFTRIAXONE 1 GM in DEXTROSE 5%-WATER - 50 ML IVPB ONE (14:15)
[2020-05-16] MEDS ORDERED: cefTRIAXone SODIUM 1 GM VIAL ONE (14:15)
[2020-05-16] MEDS ORDERED: DEXTROSE 5%-WATER - 50 ML IVPB ONE (14:15)
[2020-05-16 15:05] LABS: URINE APPEARANCE TURBID; URINE COLOR YELLOW
[2020-05-16 15:06] LABS: PH,URINE 6.5 (5.0-8.0); URINE BILIRUBIN NEGATIVE (NEGATIVE); URINE GLUCOSE (UA) NEGATIVE (NEGATIVE); URINE KETONE NEGATIVE (NEGATIVE); URINE LEUK ESTERASE 3+ (NEGATIVE); URINE NITRITE NEGATIVE (NEGATIVE); URINE PROTEIN 3+ (NEGATIVE)
[2020-05-16 15:07] LABS: EPI CELLS 65.2 /uL (0-25.1); HYALINE CASTS 350.81 /uL (0-3.1); URINE BACTERIA 3293.3 /uL (0-1359); URINE RBC 3317.3 /uL (0-23.9); URINE WBC 23616.3 /uL (0-25.8)
== END 2020-05-16 18:39 | disposition home or self-care (01) ==
LOC: JER 12:55
PROC: 3E03329 Introduction of Other Anti-infective into Peripheral Vein, Percutaneous Approach (ICD-10-PCS; principal; 2020-05-16)
PROC: 3E033GC Introduction of Other Therapeutic Substance into Peripheral Vein, Percutaneous Approach (ICD-10-PCS; 2020-05-16)
DX: O23.42 Unspecified infection of urinary tract in pregnancy, second trimester (principal)
CPT/HCPCS: 76775-TC; 81003; 87086; 87186; 99284-25

== ENCOUNTER 2020-07-13 08:10 | Inpatient (IN) | payer OTHER ==
[2020-07-13] MEDS ORDERED: DEXTROSE 5%-LACTATED RINGERS 1,000 ML IV SCH (09:45)
[2020-07-13 10:12] VITALS: BMI 32.1
[2020-07-13 11:11] LABS: BASO % 0.3 % (0-2.0); EOS % 1.6 % (0-4.5); HEMATOCRIT 30.8 % (32.4-45.2); HEMOGLOBIN 10.3 GM/dL (10.7-15.3); LYMPH % 19.9 % (8-40); MCH 27.6 pg (25.7-33.7); MCHC 33.4 g/dl (32.0-36.0); MEAN CELL VOLUME 82.6 fl (80-96); MEAN PLT VOLUME 8.3 fl (7.5-11.1); MONO % 6.8 % (3.8-10.2); NEUT % 71.4 % (42.8-82.8); PLATELET COUNT 241 K/MM3 (134-434); RBC 3.73 M/mm3 (3.60-5.2); RDW 13.7 % (11.6-15.6); WHITE BLOOD COUNT 5.9 K/mm3 (4.0-10.0)
[2020-07-13 11:16] LABS: INR 0.93 (0.83-1.09); PROTHROMBIN TIME (PATIENT) 11.5 SEC (9.7-13.0)
[2020-07-13 11:36] LABS: CALCIUM 8.3 mg/dL (8.5-10.1)
[2020-07-13 11:41] LABS: CREATININE 0.6 mg/dL (0.55-1.3)
[2020-07-13] MEDS ORDERED: morphine SULFATE 4 MG/ML VIAL IVPUSH PRN (12:20)
[2020-07-13] MEDS: MISOPROSTOL 100 MCG TABLET PV SCH ×3 (12:20→18:14)
[2020-07-13] MEDS ORDERED: MORPHINE SULFATE 2 MG/ML VIAL ONE ×2 (12:27)
[2020-07-13] MEDS ORDERED: MORPHINE SULFATE 2 MG/ML VIAL IVPUSH PRN (13:02)
[2020-07-13] MEDS ORDERED: FENTANYL/BUPIVACAINE/NS/PF - PCEA - 50 ML DISP.SYRIN EP ONE (13:44)
[2020-07-13] MEDS ORDERED: PCA PUMP NR ONE ×2 (13:44→18:54)
[2020-07-13] MEDS ORDERED: MISOPROSTOL 100 MCG TABLET PV SCH (14:00)
[2020-07-13] MEDS ORDERED: BUPIVACAINE HCL/PF 0.25% (2.5MG/ML) 10 ML VIAL ONE ×2 (15:18→17:40)
[2020-07-13] MEDS ORDERED: NALOXONE HCL 0.4 MG/ML VIAL IVPUSH PRN (15:41)
[2020-07-13] MEDS ORDERED: FENTANYL/BUPIVACAINE/NS/PF - PCEA - 50 ML DISP.SYRIN EP SCH (15:45)
[2020-07-13] MEDS ORDERED: OXYTOCIN 30 UNITS in 0.9% NS 30 UNIT/500 ML INFUS.BAG IVPB SCH ×2 (16:15→17:30)
[2020-07-13] MEDS ORDERED: ELECTROLYTE-148 SOLN 1,000 ML IV SCH (16:15)
[2020-07-13] MEDS ORDERED: OXYTOCIN 30 UNITS in 0.9% NS 30 UNIT/500 ML INFUS.BAG IVPB ONE (17:05)
[2020-07-13] MEDS ORDERED: OXYTOCIN 20 UNITS in 0.9% NS 20 UNIT/1,000 ML INFUS.BAG IV ONE (17:57)
[2020-07-13] MEDS ORDERED: WITCH HAZEL 50% (TUCKS) 40 PAD/JAR PAD TP PRN (19:18)
[2020-07-13] MEDS ORDERED: BENZOCAINE 20% 57 GM BOTTLE TP PRN (19:18)
[2020-07-13] MEDS ORDERED: METHYLERGONOVINE MALEATE 0.2 MG/1 ML AMP IM PRN (19:18)
[2020-07-13] MEDS ORDERED: BISACODYL 10 MG SUPP.RECT RC PRN (19:18)
[2020-07-13] MEDS ORDERED: BENZOCAINE 28 GM HEMORRHOIDAL OINTMENT TP PRN (19:18)
[2020-07-13] MEDS ORDERED: ACETAMINOPHEN 325 MG TABLET (FP) PO PRN (19:18)
[2020-07-13] MEDS ORDERED: D5W-LR W/ 20 UNITS OXYTOCIN 20 UNIT/1,000 ML INFUS.BAG IV SCH (19:30)
[2020-07-13 19:47] LABS: CORD PCO2 39.8 mmHg (30-78); CORD pH 7.273 (7.14-7.44)
[2020-07-13] MEDS ORDERED: IBUPROFEN 600 MG TABLET (FP) PO ONE (20:04)
[2020-07-13] MEDS: IBUPROFEN 600 MG TABLET (FP) PO PRN (20:07)
[2020-07-14] MEDS: FERROUS SO4 325 MG TABLET (FP) PO SCH ×2 (08:48→17:01)
[2020-07-14 08:52] LABS: BASO % 0.2 % (0-2.0); EOS % 0.5 % (0-4.5); HEMOGLOBIN 10.3 GM/dL (10.7-15.3); LYMPH % 17.3 % (8-40); MCH 27.6 pg (25.7-33.7); MCHC 33.2 g/dl (32.0-36.0); MEAN CELL VOLUME 83.2 fl (80-96); MEAN PLT VOLUME 9.2 fl (7.5-11.1); MONO % 5.1 % (3.8-10.2); NEUT % 76.9 % (42.8-82.8); PLATELET COUNT 213 K/MM3 (134-434); RBC 3.72 M/mm3 (3.60-5.2); RDW 14.1 % (11.6-15.6); WHITE BLOOD COUNT 9.5 K/mm3 (4.0-10.0)
[2020-07-14] MEDS: PRENATAL VITAMINS W/ FOLIC ACID TABLET (FP) PO SCH (10:18)
[2020-07-14] MEDS: IBUPROFEN 600 MG TABLET (FP) PO PRN (10:32)
[2020-07-14] MEDS ORDERED: SENNOSIDES/DOCUSATE COMBO (SENNA PLUS) TABLET (UD) PO PRN (22:00)
[2020-07-15 09:37] VITALS: BP 118/79; PULSE 64; TEMP 97.7
[2020-07-15] MEDS: FERROUS SO4 325 MG TABLET (FP) PO SCH (09:46)
[2020-07-15] MEDS: PRENATAL VITAMINS W/ FOLIC ACID TABLET (FP) PO SCH (09:46)
[2020-07-15 12:50] LABS: POC NITRAZINE NEG
== END 2020-07-15 12:10 | disposition home or self-care (01) | DRG 560 ==
LOC: JDEL 08:10 → JLDR 09:10 → J3W 20:55
PROVIDERS: ADMIT Family Medicine; ATTEND Family Medicine
PROC: 10E0XZZ Delivery of Products of Conception, External Approach (ICD-10-PCS; principal; 2020-07-13)
PROC: 0HQ9XZZ Repair Perineum Skin, External Approach (ICD-10-PCS; 2020-07-13)
DX: O41.03X0 Oligohydramnios, third trimester, not applicable or unspecified (principal); Z3A.40 40 weeks gestation of pregnancy; Z37.0 Single live birth; O70.0 First degree perineal laceration during delivery; Z87.448 Personal history of other diseases of urinary system
CPT/HCPCS: 36415; 36600; 59025; 59409; 80048; 82803; 83986-QW; 85025; 85610; 85730; 86780; 86850; 86900; 86901; C9803; U0003; U0005

== ENCOUNTER 2020-11-19 18:06 | Emergency (ER) | payer OTHER ==
[2020-11-19 18:12] VITALS: BP 98/59; PULSE 59; TEMP 98.4; BMI 27.4
[2020-11-19] MEDS ORDERED: ONDANSETRON 4 MG/2 ML VIAL IVPUSH PRN (19:22)
[2020-11-19] MEDS ORDERED: SODIUM CHLORIDE 0.9% 500 ML INFUS.BAG IV ONE (19:22)
[2020-11-19] MEDS ORDERED: FAMOTIDINE 20 MG/50 ML IVPB 20 MG/50 ML MG IVPB ONE (19:24)
[2020-11-19] MEDS ORDERED: ONDANSETRON 4 MG/2 ML VIAL ONE ×2 (19:49→23:42)
[2020-11-19 20:10] LABS: BASO % 0.3 % (0-2.0); EOS % 0.7 % (0-4.5); HEMATOCRIT 37.3 % (32.4-45.2); HEMOGLOBIN 12.5 GM/dL (10.7-15.3); LYMPH % 38.7 % (8-40); MCH 27.8 pg (25.7-33.7); MCHC 33.4 g/dl (32.0-36.0); MEAN CELL VOLUME 83.3 fl (80-96); MEAN PLT VOLUME 7.9 fl (7.5-11.1); MONO % 6.6 % (3.8-10.2); NEUT % 53.7 % (42.8-82.8); PLATELET COUNT 294 10^3/uL (134-434); RBC 4.48 M/mm3 (3.60-5.2); WHITE BLOOD COUNT 4.6 K/mm3 (4.0-10.0)
[2020-11-19 20:20] LABS: EPI CELLS >36 /uL (0-25.1); HYALINE CASTS 14 /uL (0-3.1); URINE APPEARANCE CLOUDY; URINE BACTERIA 1511 /uL (0-1359); URINE BILIRUBIN 1+ (NEGATIVE); URINE COLOR DK YELLOW; URINE GLUCOSE (UA) NEGATIVE (NEGATIVE); URINE KETONE 4+ (NEGATIVE); URINE LEUK ESTERASE 2+ (NEGATIVE); URINE NITRITE NEGATIVE (NEGATIVE); URINE PROTEIN 1+ (NEGATIVE); URINE RBC 8 /uL (0-23.9); URINE WBC 202 /uL (0-25.8)
[2020-11-19 20:28] LABS: CALCIUM 9.5 mg/dL (8.5-10.1)
[2020-11-19 20:29] LABS: ALBUMIN 4.4 g/dl (3.4-5.0); BLOOD UREA NITROGEN 8.6 mg/dL (7-18)
[2020-11-19 20:32] LABS: CREATININE 0.7 mg/dL (0.55-1.3)
[2020-11-19 20:34] LABS: BILIRUBIN,TOTAL 0.6 mg/dL (0.2-1)
[2020-11-19] MEDS ORDERED: DEXTROSE 5%-NORMAL SALINE 1,000 ML IV ONE (21:07)
[2020-11-19] MEDS ORDERED: CEFTRIAXONE 1 GM in DEXTROSE 5%-WATER - 100 ML IVPB ONE (22:36)
[2020-11-19] MEDS ORDERED: CEFTRIAXONE 1 GM/50 ML BAG ONE (22:49)
[2020-11-19] MEDS ORDERED: ACETAMINOPHEN 1000 MG/100 ML VIAL (NON FORMULARY) IVPB ONE (22:49)
[2020-11-19] MEDS ORDERED: ACETAMINOPHEN INJECTION 100 ML IVPB ONE (22:58)
[2020-11-19] MEDS ORDERED: ONDANSETRON 4 MG/2 ML VIAL IVPUSH ONE (23:44)
[2020-11-20 01:53] LABS: EPI CELLS >36 /uL (0-25.1); HYALINE CASTS 11 /uL (0-3.1); PH,URINE 5.5 (5.0-8.0); URINE APPEARANCE CLEAR; URINE BACTERIA 244 /uL (0-1359); URINE BILIRUBIN NEGATIVE (NEGATIVE); URINE COLOR DK YELLOW; URINE GLUCOSE (UA) NEGATIVE (NEGATIVE); URINE KETONE 3+ (NEGATIVE); URINE LEUK ESTERASE NEGATIVE (NEGATIVE); URINE NITRITE NEGATIVE (NEGATIVE); URINE PROTEIN 1+ (NEGATIVE); URINE RBC 3 /uL (0-23.9)
[2020-11-20 09:15] LABS: URINE WBC 2.7 /uL (0-25.8)
== END 2020-11-20 02:37 | disposition left against medical advice (07) ==
LOC: JER 18:06
PROC: 3E0333Z Introduction of Anti-inflammatory into Peripheral Vein, Percutaneous Approach (ICD-10-PCS; principal; 2020-11-19)
PROC: 3E03329 Introduction of Other Anti-infective into Peripheral Vein, Percutaneous Approach (ICD-10-PCS; 2020-11-19)
PROC: 3E033GC Introduction of Other Therapeutic Substance into Peripheral Vein, Percutaneous Approach (ICD-10-PCS; 2020-11-19)
PROC: 3E033GC Introduction of Other Therapeutic Substance into Peripheral Vein, Percutaneous Approach (ICD-10-PCS; 2020-11-19)
PROC: 3E033GC Introduction of Other Therapeutic Substance into Peripheral Vein, Percutaneous Approach (ICD-10-PCS; 2020-11-19)
PROC: 3E033GC Introduction of Other Therapeutic Substance into Peripheral Vein, Percutaneous Approach (ICD-10-PCS; 2020-11-19)
DX: O21.1 Hyperemesis gravidarum with metabolic disturbance (principal); Z3A.01 Less than 8 weeks gestation of pregnancy
CPT/HCPCS: 36415; 76817-TC; 80053; 81003; 84702; 85025; 87086; 99284-25; J0131

== ENCOUNTER 2020-11-20 20:18 | Emergency (ER) | payer OTHER ==
[2020-11-20 20:32] VITALS: BMI 30.7
[2020-11-20] MEDS ORDERED: ONDANSETRON 4 MG/2 ML VIAL IVPB ONE (21:02)
[2020-11-20] MEDS ORDERED: LACTATED RINGERS SOLUTION 1000 ML INFUS.BAG IV ONE ×3 (21:03→23:48)
[2020-11-20] MEDS ORDERED: FAMOTIDINE 20 MG/50 ML IVPB 20 MG/50 ML MG IVPB ONE ×2 (21:30→21:52)
[2020-11-20] MEDS ORDERED: ONDANSETRON 4 MG/2 ML VIAL ONE (21:52)
[2020-11-20 22:01] LABS: VENOUS BASE EXCESS -2.6 mmol/L (-2-2); VENOUS O2 SATURATION 32.2 % (70-80); VENOUS PCO2 41.8 mmHg (38-52); VENOUS PH 7.355 (7.310-7.410)
[2020-11-20 22:05] LABS: BASO % 0.5 % (0-2.0); EOS % 0.6 % (0-4.5); LYMPH % 33.1 % (8-40); MCH 27.8 pg (25.7-33.7); MCHC 33.3 g/dl (32.0-36.0); MEAN CELL VOLUME 83.4 fl (80-96); MEAN PLT VOLUME 8.1 fl (7.5-11.1); MONO % 8.2 % (3.8-10.2); NEUT % 57.6 % (42.8-82.8); PLATELET COUNT 232 10^3/uL (134-434); RBC 3.96 M/mm3 (3.60-5.2); RDW 13.9 % (11.6-15.6); WHITE BLOOD COUNT 3.7 K/mm3 (4.0-10.0)
[2020-11-20 22:18] LABS: EPI CELLS >36 /uL (0-25.1); HYALINE CASTS 10 /uL (0-3.1); URINE APPEARANCE CLEAR; URINE BACTERIA 88 /uL (0-1359); URINE BILIRUBIN NEGATIVE (NEGATIVE); URINE COLOR YELLOW; URINE GLUCOSE (UA) NEGATIVE (NEGATIVE); URINE KETONE 4+ (NEGATIVE); URINE LEUK ESTERASE 1+ (NEGATIVE); URINE NITRITE NEGATIVE (NEGATIVE); URINE PROTEIN 1+ (NEGATIVE); URINE RBC 2 /uL (0-23.9); URINE WBC 69 /uL (0-25.8)
[2020-11-20 22:27] LABS: CALCIUM 9.1 mg/dL (8.5-10.1)
[2020-11-20 22:28] LABS: BLOOD UREA NITROGEN 5.5 mg/dL (7-18)
[2020-11-20 22:31] LABS: CREATININE 0.6 mg/dL (0.55-1.3)
[2020-11-20 22:32] LABS: BILIRUBIN,TOTAL 0.6 mg/dL (0.2-1)
[2020-11-20 22:33] LABS: TOT PROT 7.3 g/dl (6.4-8.2)
[2020-11-20] MEDS ORDERED: CEFTRIAXONE 1 GM in DEXTROSE 5%-WATER - 100 ML IVPB ONE (22:54)
[2020-11-20] MEDS ORDERED: CEFTRIAXONE 1 GM/50 ML BAG ONE (23:25)
[2020-11-21 02:23] VITALS: BP 115/63; PULSE 71; TEMP 98.3
== END 2020-11-21 02:23 | disposition home or self-care (01) ==
LOC: JER 20:18
PROC: 3E033GC Introduction of Other Therapeutic Substance into Peripheral Vein, Percutaneous Approach (ICD-10-PCS; principal; 2020-11-20)
DX: O23.41 Unspecified infection of urinary tract in pregnancy, first trimester (principal); O21.9 Vomiting of pregnancy, unspecified; Z3A.01 Less than 8 weeks gestation of pregnancy
CPT/HCPCS: 36415; 80053; 81003; 82803; 83605; 83690; 83735; 84702; 85025; 87086; 99284-25; C9803; U0003; U0005

== ENCOUNTER 2021-06-27 20:31 | Emergency (ER) | payer OTHER ==
[2021-06-27 20:46] VITALS: TEMP 98; BMI 21.9
[2021-06-27] MEDS ORDERED: ONDANSETRON *ODT* 4 MG TABLET SL ONE (21:30)
[2021-06-27] MEDS ORDERED: ONDANSETRON *ODT* 4 MG TABLET ONE (21:32)
[2021-06-27] MEDS ORDERED: SODIUM CHLORIDE 0.9% 500 ML INFUS.BAG IV ONE (22:45)
[2021-06-27 23:14] LABS: BASO % 0.5 % (0-2.0); EOS % 1.3 % (0-4.5); HEMATOCRIT 31.9 % (32.4-45.2); HEMOGLOBIN 10.7 GM/dL (10.7-15.3); LYMPH % 23.9 % (8-40); MCH 28.8 pg (25.7-33.7); MCHC 33.6 g/dl (32.0-36.0); MEAN CELL VOLUME 85.8 fl (80-96); MEAN PLT VOLUME 7.5 fl (7.5-11.1); NEUT % 68.3 % (42.8-82.8); PLATELET COUNT 251 10^3/uL (134-434); RBC 3.72 M/mm3 (3.60-5.2); RDW 13.2 % (11.6-15.6); WHITE BLOOD COUNT 6.6 K/mm3 (4.0-10.0)
[2021-06-27 23:34] LABS: ALBUMIN 3.8 g/dl (3.4-5.0); BLOOD UREA NITROGEN 6.9 mg/dL (7-18)
[2021-06-27 23:37] LABS: CREATININE 0.5 mg/dL (0.55-1.3)
[2021-06-27 23:39] LABS: BILIRUBIN,TOTAL 0.7 mg/dL (0.2-1); TOT PROT 6.7 g/dl (6.4-8.2)
[2021-06-27] MEDS ORDERED: ONDANSETRON 4 MG TABLET PO ONE (23:56)
[2021-06-28] MEDS ORDERED: ONDANSETRON 4 MG TABLET PO ONE (00:01)
[2021-06-28 00:09] VITALS: BP 115/71; PULSE 85
== END 2021-06-28 00:09 | disposition home or self-care (01) ==
LOC: JER 20:31
DX: O21.9 Vomiting of pregnancy, unspecified (principal); Z3A.01 Less than 8 weeks gestation of pregnancy
CPT/HCPCS: 36415; 80053; 85025; 99283-25; Q0162

== ENCOUNTER 2021-09-09 20:27 | Emergency (ER) | payer OTHER ==
[2021-09-09 21:05] VITALS: BP 99/65; PULSE 80; RESP 16; TEMP 98.1; BMI 22.4
[2021-09-09] MEDS ORDERED: LACTATED RINGERS SOLUTION 1000 ML INFUS.BAG IV ONE (21:52)
[2021-09-09] MEDS ORDERED: ACETAMINOPHEN 1000 MG/100 ML BAG IVPB ONE (21:52)
[2021-09-09 22:24] LABS: BASO % 0.5 % (0-2.0); EOS % 1.2 % (0-4.5); HEMATOCRIT 29.7 % (32.4-45.2); HEMOGLOBIN 9.9 GM/dL (10.7-15.3); LYMPH % 26.7 % (8-40); MCH 29.7 pg (25.7-33.7); MCHC 33.3 g/dl (32.0-36.0); MEAN CELL VOLUME 89.1 fl (80-96); MEAN PLT VOLUME 7.6 fl (7.5-11.1); MONO % 7.8 % (3.8-10.2); NEUT % 63.8 % (42.8-82.8); PLATELET COUNT 235 10^3/uL (134-434); RBC 3.33 M/mm3 (3.60-5.2); RDW 13.8 % (11.6-15.6)
[2021-09-09] MEDS ORDERED: ACETAMINOPHEN INJECTION 100 ML IVPB ONE (22:27)
[2021-09-09 22:34] LABS: ACTIVATED PTT 30.9 SECONDS (25.2-36.5)
[2021-09-09 22:38] LABS: INR 1.05 (0.83-1.09); PROTHROMBIN TIME (PATIENT) 12.1 SEC (9.7-13.0)
[2021-09-09 22:42] LABS: CHLORIDE 103 mmol/L (98-107)
[2021-09-09 22:45] LABS: BLOOD UREA NITROGEN 13.2 mg/dL (7-18)
[2021-09-09 23:30] LABS: PH,URINE 6.5 (5.0-8.0); URINE APPEARANCE CLEAR; URINE BILIRUBIN NEGATIVE (NEGATIVE); URINE COLOR YELLOW; URINE GLUCOSE (UA) NEGATIVE (NEGATIVE); URINE KETONE TRACE (NEGATIVE); URINE LEUK ESTERASE NEGATIVE (NEGATIVE); URINE NITRITE NEGATIVE (NEGATIVE); URINE PROTEIN NEGATIVE (NEGATIVE)
[2021-09-10 00:52] LABS: ALBUMIN 2.7 g/dl (3.4-5.0); ANION GAP -5 MMOL/L (8-16); CO2 21 mmol/L (21-32); CREATININE 0.7 mg/dL (0.55-1.3); GLUCOSE,RANDOM 65 mg/dL (74-106); SODIUM 119 mmol/L (136-145); TOT PROT 8.7 g/dl (6.4-8.2)
== END 2021-09-09 23:25 | disposition left against medical advice (07) ==
LOC: JER 20:27
DX: O26.892 Other specified pregnancy related conditions, second trimester (principal); R10.9 Unspecified abdominal pain; Z3A.17 17 weeks gestation of pregnancy
CPT/HCPCS: 36415; 76775-TC; 76801-TC; 80053; 81003; 83690; 85025; 85610; 85730; 87086; 99285-25

== ENCOUNTER 2022-02-09 12:25 | Inpatient (IN) | payer OTHER ==
[2022-02-09] MEDS ORDERED: ELECTROLYTE-148 SOLN 1,000 ML IV SCH (16:00)
[2022-02-09] MEDS ORDERED: AMPICILLIN SODIUM 2 GM VIAL ONE (16:10)
[2022-02-09] MEDS ORDERED: BUTORPHANOL TARTRATE 1 MG/ML VIAL ONE (16:14)
[2022-02-09] MEDS ORDERED: PROMETHAZINE HCL 25 MG/1 ML VIAL ONE (16:14)
[2022-02-09] MEDS ORDERED: AMPICILLIN - 2 GM in SODIUM CHLORIDE 100 ML IVPB ONE (16:15)
[2022-02-09] MEDS ORDERED: PROMETHAZINE HCL 25 MG/1 ML VIAL IVPUSH ONE (16:26)
[2022-02-09] MEDS ORDERED: BUTORPHANOL TARTRATE 1 MG/ML VIAL IVPB ONE (16:26)
[2022-02-09 16:44] LABS: BASO % 0.3 % (0-2.0); EOS % 0.3 % (0-4.5); HEMATOCRIT 30.2 % (32.4-45.2); HEMOGLOBIN 9.6 GM/dL (10.7-15.3); LYMPH % 20.5 % (8-40); MCH 27.2 pg (25.7-33.7); MCHC 31.7 g/dl (32.0-36.0); MEAN CELL VOLUME 85.8 fl (80-96); MEAN PLT VOLUME 7.9 fl (7.5-11.1); MONO % 6.2 % (3.8-10.2); NEUT % 72.7 % (42.8-82.8); PLATELET COUNT 256 10^3/uL (134-434); RBC 3.52 M/mm3 (3.60-5.2); RDW 13.2 % (11.6-15.6); WHITE BLOOD COUNT 6.6 K/mm3 (4.0-10.0)
[2022-02-09 16:57] LABS: INR 0.98 (0.83-1.09); PROTHROMBIN TIME (PATIENT) 11.3 SEC (9.7-13.0)
[2022-02-09 17:00] LABS: ACTIVATED PTT 28.4 SECONDS (25.2-36.5)
[2022-02-09] MEDS ORDERED: OXYTOCIN 20 UNITS in 0.9% NS 20 UNIT/1,000 ML INFUS.BAG IV ONE (17:01)
[2022-02-09] MEDS ORDERED: LIDOCAINE HCL 1% PRESERVATIVE FREE - 30ML VIAL ONE (17:02)
[2022-02-09 17:03] LABS: BLOOD UREA NITROGEN 7.6 mg/dL (7-18); CALCIUM 8.4 mg/dL (8.5-10.1)
[2022-02-09 17:07] LABS: CREATININE 0.5 mg/dL (0.55-1.3)
[2022-02-09 17:09] VITALS: BMI 28.1
[2022-02-09] MEDS: OXYTOCIN 20 UNITS in 0.9% NS 20 UNIT/1,000 ML INFUS.BAG IV SCH ×2 (17:20→18:05)
[2022-02-09] MEDS ORDERED: BENZOCAINE 20% 57 GM BOTTLE TP PRN (17:38)
[2022-02-09] MEDS ORDERED: BISACODYL 10 MG SUPP.RECT RC PRN (17:38)
[2022-02-09] MEDS ORDERED: oxyCODONE HCL 5 MG TABLET PO PRN (17:38)
[2022-02-09] MEDS ORDERED: WITCH HAZEL 50% (TUCKS) 40 PAD/JAR PAD TP PRN (17:38)
[2022-02-09] MEDS ORDERED: ACETAMINOPHEN 325 MG TABLET (FP) PO PRN (17:38)
[2022-02-09] MEDS ORDERED: BENZOCAINE 28 GM HEMORRHOIDAL OINTMENT TP PRN (17:38)
[2022-02-09] MEDS ORDERED: METHYLERGONOVINE MALEATE 0.2 MG/1 ML AMP IM PRN (17:38)
[2022-02-09 17:59] LABS: HIV INTERPRETATION NEGATIVE (NEGATIVE)
[2022-02-09 18:16] LABS: CORD BASE EXCESS -5.3 mmol/L (0-2); CORD HCO3 21.5 mmHg (20-29); CORD PCO2 46.8 mmHg (30-78); CORD pH 7.281 (7.14-7.44)
[2022-02-09] MEDS ORDERED: AMPICILLIN - 1 GM in SODIUM CHLORIDE 100 ML IVPB SCH (20:15)
[2022-02-09 21:57] LABS: OPIATES, URI NEGATIVE (NEGATIVE); URINE BARBITURATES NEGATIVE (NEGATIVE)
[2022-02-09 21:59] LABS: COCAINE, UR NEGATIVE (NEGATIVE); METHADONE, UR NEGATIVE (NEGATIVE); PHENCYCLIDINE,URINE NEGATIVE (NEGATIVE); URINE AMPHETAMINES NEGATIVE (NEGATIVE)
[2022-02-09 22:03] LABS: URINE BENZODIAZEPINES NEGATIVE (NEGATIVE)
[2022-02-10] MEDS: IBUPROFEN 600 MG TABLET (FP) PO PRN ×3 (00:28→17:31)
[2022-02-10 08:13] LABS: BASO % 0.2 % (0-2.0); EOS % 0.5 % (0-4.5); HEMATOCRIT 24.4 % (32.4-45.2); HEMOGLOBIN 7.9 GM/dL (10.7-15.3); LYMPH % 17.7 % (8-40); MCH 27.4 pg (25.7-33.7); MCHC 32.3 g/dl (32.0-36.0); MEAN CELL VOLUME 84.7 fl (80-96); MEAN PLT VOLUME 8.5 fl (7.5-11.1); MONO % 7.2 % (3.8-10.2); NEUT % 74.4 % (42.8-82.8); PLATELET COUNT 239 10^3/uL (134-434); RBC 2.88 M/mm3 (3.60-5.2); RDW 12.8 % (11.6-15.6); WHITE BLOOD COUNT 8.1 K/mm3 (4.0-10.0)
[2022-02-10] MEDS: FERROUS SO4 325 MG TABLET (FP) PO SCH ×2 (09:05→17:31)
[2022-02-10] MEDS: PRENATAL VITAMINS W/ FOLIC ACID TABLET (FP) PO SCH (09:05)
[2022-02-10] MEDS ORDERED: IRON SUCROSE INJECTION 100 MG in SODIUM CHLORIDE 95 ML IVPB ONE (09:51)
[2022-02-10] MEDS ORDERED: SENNOSIDES/DOCUSATE COMBO (SENNA PLUS) TABLET (UD) PO PRN (22:00)
[2022-02-11] MEDS: IBUPROFEN 600 MG TABLET (FP) PO PRN (01:08)
[2022-02-11] MEDS: FERROUS SO4 325 MG TABLET (FP) PO SCH (08:20)
[2022-02-11] MEDS: PRENATAL VITAMINS W/ FOLIC ACID TABLET (FP) PO SCH (09:37)
[2022-02-11 11:37] VITALS: BP 112/60; PULSE 68; RESP 17; TEMP 97.7
[2022-02-17 12:40] LABS: POC NITRAZINE POS
== END 2022-02-11 15:20 | disposition home or self-care (01) | DRG 560 ==
LOC: JDEL 12:25 → JLDR 14:30 → J3W 20:40
PROVIDERS: ADMIT Obstetrics & Gynecology; ATTEND Obstetrics & Gynecology
PROC: 10E0XZZ Delivery of Products of Conception, External Approach (ICD-10-PCS; principal; 2022-02-09)
DX: O42.02 Full-term premature rupture of membranes, onset of labor within 24 hours of rupture (principal); O99.324 Drug use complicating childbirth; F12.90 Cannabis use, unspecified, uncomplicated; O90.81 Anemia of the puerperium; D50.8 Other iron deficiency anemias; Z3A.39 39 weeks gestation of pregnancy; Z37.0 Single live birth
CPT/HCPCS: 36415; 36600; 59409; 80048; 80307; 82803; 83986-QW; 85025; 85610; 85730; 86780; 86850; 86900; 86901; 87340; 87389; C9803-CS; J1756; U0003; U0005